=== PATIENT | female | born 1990 | race Caucasian/White ===

== ENCOUNTER 2017-05-29 05:18 | Emergency (ER) | payer OTHER, SELFPAY ==
[2017-05-29 05:24] VITALS: BP 159/103; PULSE 123; RESP 20; TEMP 36.9; O2SAT 96; BMI 47.0
--- NOTE | 2017-05-29 05:53 | HMH.EDALLER ---
ED Disposition Clinical Impression: Angioedema Qualifiers: Encounter type: initial encounter Qualified Code(s): T78.3XXA - Angioneurotic edema, initial encounter Disposition: Home, Self-Care Condition on Discharge: Good Instructions: DI for Angioedema Additional Instructions: use meds and see pcp for follow up Prescriptions: predniSONE [Prednisone 20mg Tab] 20 mg PO DAILY #10 tab - Critical Care Critical Care Time: No Attestation: On 05/29/17, the high probability of a clinically significant, sudden or life threatening deterioration of the following system(s) required my full and direct attention, intervention and personal management. The time I documented below is in addition to time spent performing reported procedures but includes the following listed in this critical care notation. Medical Decision Making - Medical Records Medical records reviewed: Yes: I reviewed the patient's medical records. Vital Signs: 05/29/17 05:24 Temperature 98.4 F Temperature Source Oral Pulse Rate [Left Brachial] 123 H Respiratory Rate 20 Blood Pressure [Right Arm] 159/103 Blood Pressure Mean [Right Arm] 121 Blood Pressure Source [Right Arm] Automatic Cuff Blood Pressure Position [Right Arm] Sitting 02 Sat by Pulse Oximetry 96 Oxygen Delivery Method Room Air - Lab Data Lab results reviewed: Yes: I reviewed the patient's lab results. Orders (Tests/Meds): ED MEDICATIONS Discontinued Medications Generic Name Dose Route Start Last Admin Trade Name Alexisq PRN Reason Stop Dose Admin Diphenhydramine HCl 25 mg 05/29/17 06:19 05/29/17 06:28 Benadryl 50mg/1ml Vial IV 05/29/17 06:20 25 mg ONCE ONE Administration Famotidine 20 mg 05/29/17 06:20 05/29/17 06:28 Pepcid 20mg/2ml Vial IV 05/29/17 06:21 20 mg ONCE ONE Administration Methylprednisolone Sodium Succinate 125 mg 05/29/17 06:19 05/29/17 06:28 Solu-Medrol 125mg/2ml Vial IV 05/29/17 06:20 125 mg ONCE ONE Administration - Gokul Inquiry Pt receiving controlled substance: No Allergic React/Insect Bite HPI - General Chief complaint: Allergic Reaction Stated complaint: Swelling all over,sore throat,aches Time Seen by Provider: 05/29/17 05:53 Mode of Arrival - ED Triage: Family Vehicle Source of Information: Patient, Relative, Medical Record Limitations: No Limitations - History of Present Illness HPI narrative: pt with allergic reaction with hx of same MD complaint: allergic reaction, hives Onset (ago): hour(s) Exposure: unknown Symptoms: rash, difficulty swallowing Treatment prior to arrival: benadryl Allergies/Adverse Reactions: Allergies Allergy/AdvReac Type Severity Reaction Status Date / Time No Known Allergies Allergy Verified 05/29/17 05:34 Previous Allergic Reaction History: angioedema Severity: similar to previous episodes - Related Data Previous Rx's Medication Instructions Recorded predniSONE [Prednisone 20mg 20 mg PO DAILY #10 tab 05/29/17 Tab] [facility] [place] History I have reviewed the patient's past medical history: Yes Medical History: Denies:: Cancer, Diabetes Mellitus Type 1, Diabetes Mellitus Type 2, MRSA Amputation: No - *Social History Educational Level: Completed College Smoking Status: Never smoker Alcohol Intake: never - Psychiatric History Expresses thoughts of harming self/others: None Suicide Plan Description: No Plan ROS Obtained: Yes All systems reviewed & no additional complaints - Constitutional Constitutional: Denies fever(s) - Eyes Eyes: Denies change in vision - ENT Ears, Nose, Mouth, and Throat: Reports throat swelling - Cardiovascular Cardiovascular: Denies chest pain at rest - Respiratory Respiratory: No cough - Gastrointestinal Gastrointestingal: Denies: vomiting - Musculoskeletal Musculoskeletal: Denies joint pain - Integumentary/Breasts Skin/Breast: Reports rash - Neurologic Neurologic: Denies frequent falls, Denies
--- NOTE | 2017-05-29 05:56 | ED_ITS ---
ED Disposition Clinical Impression: Angioedema Qualifiers: Encounter type: initial encounter Qualified Code(s): T78.3XXA - Angioneurotic edema, initial encounter Disposition: Home, Self-Care Condition on Discharge: Good Instructions: DI for Angioedema Additional Instructions: use meds and see pcp for follow up Prescriptions: predniSONE [Prednisone 20mg Tab] 20 mg PO DAILY #10 tab - Critical Care Critical Care Time: No Attestation: On 05/29/17, the high probability of a clinically significant, sudden or life threatening deterioration of the following system(s) required my full and direct attention, intervention and personal management. The time I documented below is in addition to time spent performing reported procedures but includes the following listed in this critical care notation. Medical Decision Making - Medical Records Medical records reviewed: Yes: I reviewed the patient's medical records. Vital Signs: 05/29/17 05:24 Temperature 98.4 F Temperature Source Oral Pulse Rate [Left Brachial] 123 H Respiratory Rate 20 Blood Pressure [Right Arm] 159/103 Blood Pressure Mean [Right Arm] 121 Blood Pressure Source [Right Arm] Automatic Cuff Blood Pressure Position [Right Arm] Sitting 02 Sat by Pulse Oximetry 96 Oxygen Delivery Method Room Air - Lab Data Lab results reviewed: Yes: I reviewed the patient's lab results. Orders (Tests/Meds): ED MEDICATIONS Discontinued Medications Generic Name Dose Route Start Last Admin Trade Name Alexisq PRN Reason Stop Dose Admin Diphenhydramine HCl 25 mg 05/29/17 06:19 05/29/17 06:28 Benadryl 50mg/1ml Vial IV 05/29/17 06:20 25 mg ONCE ONE Administration Famotidine 20 mg 05/29/17 06:20 05/29/17 06:28 Pepcid 20mg/2ml Vial IV 05/29/17 06:21 20 mg ONCE ONE Administration Methylprednisolone Sodium Succinate 125 mg 05/29/17 06:19 05/29/17 06:28 Solu-Medrol 125mg/2ml Vial IV 05/29/17 06:20 125 mg ONCE ONE Administration - Gokul Inquiry Pt receiving controlled substance: No Allergic React/Insect Bite HPI - General Chief complaint: Allergic Reaction Stated complaint: Swelling all over,sore throat,aches Time Seen by Provider: 05/29/17 05:53 Mode of Arrival - ED Triage: Family Vehicle Source of Information: Patient, Relative, Medical Record Limitations: No Limitations - History of Present Illness HPI narrative: pt with allergic reaction with hx of same MD complaint: allergic reaction, hives Onset (ago): hour(s) Exposure: unknown Symptoms: rash, difficulty swallowing Treatment prior to arrival: benadryl Allergies/Adverse Reactions: Allergies Allergy/AdvReac Type Severity Reaction Status Date / Time No Known Allergies Allergy Verified 05/29/17 05:34 Previous Allergic Reaction History: angioedema Severity: similar to previous episodes - Related Data Previous Rx's Medication Instructions Recorded predniSONE [Prednisone 20mg 20 mg PO DAILY #10 tab 05/29/17 Tab] [facility] History I have reviewed the patient's past medical history: Yes Medical History: Denies:: Cancer, Diabetes Mellitus Type 1, Diabetes Mellitus Type 2, MRSA Amputation: No - *Social History Educational Level: Completed
[2017-05-29 07:33] VITALS: BP 124/87; PULSE 87; RESP 16; TEMP 37; O2SAT 98
== END 2017-05-29 07:35 | disposition home or self-care (01) ==
PROVIDERS: Emergency Provider Emergency Medicine; Family Provider Internal Medicine Adolescent Medicine
DX: T78.3XXA Angioneurotic edema, initial encounter (principal)
CPT/HCPCS: 96374; 96375; 99282

== ENCOUNTER 2017-05-30 10:02 | Emergency (ER) | payer OTHER, SELFPAY ==
[2017-05-30 10:21] VITALS: BP 138/90; PULSE 86; RESP 20; TEMP 36.6; O2SAT 96; BMI 44.3
--- NOTE | 2017-05-30 10:34 | XR_ITS ---
XR chest 2V HISTORY: ITS.REASON: COUGH AND CHEST CONGESTION ORDERING PHYSICIAN: María Rushing PATIENT AGE: 27 years COMPARISON: None available FINDINGS: The cardiomediastinal silhouette and pulmonary vascularity are within normal limits. The lungs are clear without infiltrates, suspicious nodules, or pleural effusions. No acute bony abnormalities. IMPRESSION: Negative chest, no acute finding
[2017-05-30 10:44] LABS: UTC Influenza A Antigen Negative (Negative); UTC Influenza B Antigen Negative (Negative)
--- NOTE | 2017-05-30 11:01 | HMH.EDUTC ---
[facility] [place] Disposition Clinical Impression: Cough, Lung infiltrate Disposition: Home, Self-Care Condition on Discharge: Good Instructions: Sore Throat, DI for Cough -- Adult, DI for Ear Pain-Adult Additional Instructions: Take medication as prescribed Follow up with family doctor Return if needed * Monitor Temp. Tylenol and/or Ibuprofen as needed. ER if fever is no less than 101 despite alternating Tylenol and Ibuprofen * Encourage fluids, water, Gatorade, powerade, pedialyte if infant/toddler/or child * Warm salt water gargles for throat irritation *Warm fluids *Sore throat lozenges *Sleep elevated *humidifier or vaporizer Lots of rest Increase fluids, water, Gatorade, powerade Prescriptions: Albuterol Sulfate [Albuterol HFA Inhaler] 2 puffs IH Q6HP PRN #1 inh PRN Reason: Shortness Of Breath Or Wheezing Azithromycin [Z-Dexter 250mg Tab] 250 mg PO UD DOSE PK #6 tab Benzonatate [Tessalon Perle 100mg Cap] 100 mg PO TID #30 cap Guaifenesin/Dextromethorphan [Mucinex Dm ER 1,200-60 mg Tab] 1 each PO Q12H #20 tab.er.12h Forms: Work/School Release Time of Disposition: 11:33 Medical Decision Making - Medical Records Medical records reviewed: Yes: I reviewed the patient's medical records. Vital Signs: 05/30/17 10:21 Temperature 98 F Temperature Source Temporal Artery Scan Pulse Rate [Right] 86 Respiratory Rate 20 Blood Pressure [Right Arm] 138/90 Blood Pressure Mean [Right Arm] 106 Blood Pressure Source [Right Arm] Automatic Cuff Blood Pressure Position [Right Arm] Sitting 02 Sat by Pulse Oximetry 96 Oxygen Delivery Method Room Air - Lab Data Lab Results 05/30/17 10:24: Influenza Type A Ag Negative, Influenza Type B Ag Negative Orders (Tests/Meds): ED MEDICATIONS Discontinued Medications Generic Name Dose Route Start Last Admin Trade Name Freq PRN Reason Stop Dose Admin Methylprednisolone Sodium Succinate 125 mg 05/30/17 11:07 05/30/17 11:15 Solu-Medrol 125mg/2ml Vial IM 05/30/17 11:08 125 mg ONCE ONE Administration ORDERS Category Date Time Status CXR 2 view (NOT portable) [XR chest 2V] Stat Exams 05/30/17 10:34 Taken - Radiology Data #1 Image(s): Chest Image Reviewed: Yes I reviewed the patient's radiology image w/the ED provider DIscussed with DR Flores possible patchy infiltrates right lower lobe - Gokul Inquiry Pt receiving controlled substance: No Gokul was queried for this patient: No - Reevaluation(s) Time: 11:14 (Requested that Er physician or Radiology look at xray awaiting call back) [facility] [place] HPI - General Stated complaint: cough,fever,hurting all over Mode of Arrival: Ambulatory Source of Information: Patient Limitations: No Limitations Description of Symptoms (Recalled from Triage Doc. by RN): COUGH, CONGESTION, FEVER 2 DAYS HEENT Symptoms (Recalled from RN notes): Yes Resp Symptoms (Recalled from RN notes): No Skin Symptoms (Recalled from RN notes): No MS Symptoms (Recalled from RN notes): No Functional Status (Recalled from RN notes): N - History of Present Illness Provider Complaint: Patient state that she has been having cough, sinus pain and drainage, sore throat and pain in her left ear State that it has continued to get worse over the last couple of days State that she has been coughing stuff up occasionally state that today cough seems worse so she came in to get checked - Related Data Home Medications Medication Instructions Recorded Confirmed predniSONE [Prednisone 20mg 20 mg PO DAILY 05/30/17 05/30/17 Tab] Previous Rx's Medication Instructions Recorded Albuterol Sulfate [Albuterol HFA 2 puffs IH Q6HP PRN #1 inh 05/30/17 Inhaler] Azithromycin [Z-Dexter 250mg Tab] 250 mg PO UD DOSE PK #6 tab 05/30/17 Benzonatate [Tessalon Perle 100mg 100 mg PO TID #30 cap 05/30/17 Cap] Guaifenesin/Dextromethorphan 1 each PO Q12H #20 tab.er.12h 05/30/17 [Mucinex Dm ER 1,200-60 mg Tab] Allergies Allergy/Adv
--- NOTE | 2017-05-30 11:07 | ED_ITS ---
[facility] [place] Clinical Impression: Cough, Lung infiltrate Disposition: Home, Self-Care Condition on Discharge: Good Instructions: Sore Throat, DI for Cough -- Adult, DI for Ear Pain-Adult Additional Instructions: Take medication as prescribed Follow up with family doctor Return if needed * Monitor Temp. Tylenol and/or Ibuprofen as needed. ER if fever is no less than 101 despite alternating Tylenol and Ibuprofen * Encourage fluids, water, Gatorade, powerade, pedialyte if infant/toddler/or child * Warm salt water gargles for throat irritation *Warm fluids *Sore throat lozenges *Sleep elevated *humidifier or vaporizer Lots of rest Increase fluids, water, Gatorade, powerade Prescriptions: Albuterol Sulfate [Albuterol HFA Inhaler] 2 puffs IH Q6HP PRN #1 inh PRN Reason: Shortness Of Breath Or Wheezing Azithromycin [Z-Dexter 250mg Tab] 250 mg PO UD DOSE PK #6 tab Benzonatate [Tessalon Perle 100mg Cap] 100 mg PO TID #30 cap Guaifenesin/Dextromethorphan [Mucinex Dm ER 1,200-60 mg Tab] 1 each PO Q12H #20 tab.er.12h Forms: Work/School Release Time of Disposition: 11:33 Medical Decision Making - Medical Records Medical records reviewed: Yes: I reviewed the patient's medical records. Vital Signs: 05/30/17 10:21 Temperature 98 F Temperature Source Temporal Artery Scan Pulse Rate [Right] 86 Respiratory Rate 20 Blood Pressure [Right Arm] 138/90 Blood Pressure Mean [Right Arm] 106 Blood Pressure Source [Right Arm] Automatic Cuff Blood Pressure Position [Right Arm] Sitting 02 Sat by Pulse Oximetry 96 Oxygen Delivery Method Room Air - Lab Data Lab Results 05/30/17 10:24: Influenza Type A Ag Negative, Influenza Type B Ag Negative Orders (Tests/Meds): ED MEDICATIONS Discontinued Medications Generic Name Dose Route Start Last Admin Trade Name Freq PRN Reason Stop Dose Admin Methylprednisolone Sodium Succinate 125 mg 05/30/17 11:07 05/30/17 11:15 Solu-Medrol 125mg/2ml Vial IM 05/30/17 11:08 125 mg ONCE ONE Administration ORDERS Category Date Time Status CXR 2 view (NOT portable) [XR chest 2V] Stat Exams 05/30/17 10:34 Taken - Radiology Data #1 Image(s): Chest Image Reviewed: Yes I reviewed the patient's radiology image w/the ED provider DIscussed with DR Flores possible patchy infiltrates right lower lobe - Gokul Inquiry Pt receiving controlled substance: No Gokul was queried for this patient: No - Reevaluation(s) Time: 11:14 (Requested that Er physician or Radiology look at xray awaiting call back) [facility] [place] HPI - General Stated complaint: cough,fever,hurting all over Mode of Arrival: Ambulatory Source of Information: Patient Limitations: No Limitations Description of Symptoms (Recalled from Triage Doc. by RN): COUGH, CONGESTION, FEVER 2 DAYS HEENT Symptoms (Recalled from RN notes): Yes Resp Symptoms (Recalled from RN notes): No Skin Symptoms (Recalled from RN notes): No MS Symptoms (Recalled from RN notes): No Functional Status (Recalled from RN notes): N - History of Present Illness Provider Complaint: Patient state that she has been having cough, sinus pain and drainage, sore throat and pain in her left ear State that it has continued to get worse over the last couple of days State that she has been coughing stuff up occasionally state that toda
== END 2017-05-30 11:47 | disposition home or self-care (01) ==
PROVIDERS: Emergency Provider Nurse Practitioner; Family Provider Internal Medicine Adolescent Medicine
DX: R05 Cough (principal); R91.8 Other nonspecific abnormal finding of lung field
CPT/HCPCS: 71046; 87804; 96372; 99202

== ENCOUNTER → 2017-06-14 12:25 | Outpatient (CLI) | payer OTHER, SELFPAY ==
[2017-06-14 16:44] LABS: Basophils % 0.2 % (0.1-2.0); Eosinophils # 0.4 K/mm3 (0.0-0.4); Eosinophils % 3.7 % (0.1-12.0); Hematocrit 40.7 % (37.0-47.0); Hemoglobin 13.5 g/dL (12.2-16.2); Lymphocytes # 3.2 K/mm3 (0.7-4.5); Lymphocytes % 31.6 K/mm3 (10-50); Mean Corpuscular HGB Conc 33.1 g/dL (31.8-35.4); Mean Corpuscular Hemoglobin 27.8 pg (27.0-31.2); Mean Platelet Volume 7.7 fl (7.4-10.4); Monocytes # 0.8 K/mm3 (0.1-1.0); Monocytes % 7.4 % (1.7-9.3); Neutrophils # 5.8 K/mm3 (1.8-7.8); Neutrophils % 57.1 % (37.0-80.0); Platelet Count 431 K/mm3 (142-424); Red Blood Count 4.85 M/mm3 (4.20-5.40); Red Cell Distribution Width 13.2 % (11.5-17.5); White Blood Count 10.2 K/mm3 (4.8-10.8)
== END ==
PROVIDERS: PCP Internal Medicine Adolescent Medicine; Visit Provider Nurse Practitioner Family
DX: D72.829 Elevated white blood cell count, unspecified (principal)
CPT/HCPCS: 36415; 85025

== ENCOUNTER 2017-08-22 09:53 | Outpatient (CLI) | payer OTHER, SELFPAY ==
[2017-08-22 10:00] VITALS: BMI 44.3
[2017-08-22 10:30] VITALS: BP 117/38; PULSE 85; RESP 20; O2SAT 97
[2017-08-22 10:45] VITALS: BP 120/58; PULSE 79; RESP 18; O2SAT 100
[2017-08-22 11:00] VITALS: BP 125/68; PULSE 78; RESP 18; O2SAT 100
[2017-08-22 11:15] VITALS: BP 118/63; PULSE 87; RESP 18; O2SAT 100
[2017-08-22 11:30] VITALS: BP 116/64; PULSE 78; RESP 18; O2SAT 98
--- NOTE | 2017-08-22 15:21 | PC.NURSE ---
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 1330: Called patient and shes doing ok, no side effects after injections noted.
== END 2017-08-22 11:30 | disposition home or self-care (01) ==
LOC: INF 09:53
PROVIDERS: Family Provider Internal Medicine Adolescent Medicine; PCP Internal Medicine Adolescent Medicine; Visit Provider Internal Medicine Adolescent Medicine
DX: T78.3XXA Angioneurotic edema, initial encounter (principal); L50.0 Allergic urticaria
CPT/HCPCS: 96372; J2357

== ENCOUNTER 2017-09-17 13:10 | Outpatient (CLI) | payer OTHER, SELFPAY ==
[2017-09-17 13:35] VITALS: BP 134/80; PULSE 80; RESP 18
[2017-09-17 13:45] VITALS: BP 140/92; PULSE 80; RESP 18
[2017-09-17 14:00] VITALS: BP 129/76; PULSE 80; RESP 18
[2017-09-17 14:15] VITALS: BP 125/86; PULSE 81; RESP 18
[2017-09-17 14:30] VITALS: BP 125/86; PULSE 73; RESP 18
[2017-09-17 14:35] VITALS: BP 125/86; PULSE 73; RESP 18
== END 2017-09-17 14:35 | disposition home or self-care (01) ==
PROVIDERS: Family Provider Internal Medicine Adolescent Medicine; PCP Internal Medicine Adolescent Medicine; Visit Provider Internal Medicine Adolescent Medicine
DX: T78.3XXA Angioneurotic edema, initial encounter (principal); L50.0 Allergic urticaria
CPT/HCPCS: 96401; J2357

== ENCOUNTER 2017-10-15 08:25 | Outpatient (CLI) | payer OTHER, SELFPAY ==
[2017-10-15 08:45] VITALS: BP 144/86; PULSE 84; RESP 20; TEMP 36.7; O2SAT 94
[2017-10-15 10:00] VITALS: BP 139/81; PULSE 86; RESP 20; TEMP 36.7; O2SAT 96
== END 2017-10-15 10:00 | disposition home or self-care (01) ==
LOC: INF 08:30
PROVIDERS: Family Provider Internal Medicine Adolescent Medicine; PCP Internal Medicine Adolescent Medicine; Visit Provider Internal Medicine Adolescent Medicine
DX: T78.3XXA Angioneurotic edema, initial encounter (principal); L50.0 Allergic urticaria
CPT/HCPCS: 96372; J2357

== ENCOUNTER 2017-11-12 13:50 | Outpatient (CLI) | payer OTHER, SELFPAY ==
[2017-11-12 14:05] VITALS: BP 119/77; PULSE 81; RESP 18; TEMP 36.5; O2SAT 98
== END 2017-11-12 14:27 | disposition home or self-care (01) ==
LOC: INF 14:01
PROVIDERS: Family Provider Internal Medicine Adolescent Medicine; PCP Internal Medicine Adolescent Medicine; Visit Provider Internal Medicine Adolescent Medicine
DX: T78.3XXA Angioneurotic edema, initial encounter (principal); L50.0 Allergic urticaria
CPT/HCPCS: 96372; J2357

== ENCOUNTER 2017-12-10 10:51 | Outpatient (CLI) | payer OTHER, SELFPAY ==
[2017-12-10 11:20] VITALS: BP 130/75; PULSE 89; RESP 20; TEMP 36.6; O2SAT 97
== END 2017-12-10 11:45 | disposition home or self-care (01) ==
LOC: INF 10:51
PROVIDERS: Family Provider Internal Medicine Adolescent Medicine; PCP Internal Medicine Adolescent Medicine; Visit Provider Internal Medicine Adolescent Medicine
DX: T78.3XXA Angioneurotic edema, initial encounter (principal); L50.0 Allergic urticaria
CPT/HCPCS: 96372; J2357

== ENCOUNTER 2018-01-07 13:30 | Outpatient (CLI) | payer OTHER, SELFPAY ==
[2018-01-07 13:35] VITALS: BP 129/84; PULSE 66; RESP 20; TEMP 36.9; O2SAT 96
== END 2018-01-07 13:50 | disposition home or self-care (01) ==
LOC: INF 13:36
PROVIDERS: Family Provider Internal Medicine Adolescent Medicine; PCP Internal Medicine Adolescent Medicine; Visit Provider Internal Medicine Adolescent Medicine
DX: T78.3XXA Angioneurotic edema, initial encounter (principal); L50.0 Allergic urticaria
CPT/HCPCS: 96372

== ENCOUNTER 2018-02-04 12:22 | Outpatient (CLI) | payer OTHER, SELFPAY ==
[2018-02-04 12:25] VITALS: BP 122/70; PULSE 68; RESP 20; TEMP 36.7; O2SAT 96
== END 2018-02-04 12:55 | disposition home or self-care (01) ==
LOC: INF 12:22
PROVIDERS: Visit Provider Internal Medicine Adolescent Medicine
DX: T78.3XXA Angioneurotic edema, initial encounter (principal); L50.0 Allergic urticaria
CPT/HCPCS: 96372; J2357

== ENCOUNTER 2018-03-04 13:05 | Outpatient (CLI) | payer OTHER, SELFPAY ==
[2018-03-04 13:30] VITALS: BP 128/74; PULSE 68; RESP 20; TEMP 36.9; O2SAT 96
== END 2018-03-04 13:50 | disposition home or self-care (01) ==
LOC: INF 13:14
PROVIDERS: Visit Provider Internal Medicine Adolescent Medicine
DX: T78.3XXA Angioneurotic edema, initial encounter (principal); L50.0 Allergic urticaria
CPT/HCPCS: 96372; J2357

== ENCOUNTER 2018-04-01 13:22 | Outpatient (CLI) | payer OTHER, SELFPAY ==
[2018-04-01 13:36] VITALS: BP 129/87; PULSE 82; RESP 18; TEMP 36.6; O2SAT 98
== END 2018-04-01 14:00 | disposition home or self-care (01) ==
LOC: INF 13:22
PROVIDERS: Visit Provider Internal Medicine Adolescent Medicine
DX: T78.3XXA Angioneurotic edema, initial encounter (principal); L50.0 Allergic urticaria
CPT/HCPCS: 96372; J2357

== ENCOUNTER 2018-05-01 11:33 | Outpatient (CLI) | payer OTHER, SELFPAY ==
[2018-05-01 12:00] VITALS: BP 113/80; PULSE 70; RESP 18; TEMP 36.6; O2SAT 99
== END 2018-05-01 12:10 | disposition home or self-care (01) ==
LOC: INF 11:33
PROVIDERS: Visit Provider Internal Medicine Adolescent Medicine
DX: T78.3XXA Angioneurotic edema, initial encounter (principal); L50.0 Allergic urticaria
CPT/HCPCS: 96372; J2357

== ENCOUNTER 2018-05-28 16:10 | Outpatient (CLI) | payer OTHER, SELFPAY ==
[2018-05-28 16:00] VITALS: BP 148/70; PULSE 60; RESP 20; TEMP 36.9; O2SAT 95
== END 2018-05-28 16:30 | disposition home or self-care (01) ==
LOC: INF 16:20
PROVIDERS: Visit Provider Allergy & Immunology
DX: T78.3XXA Angioneurotic edema, initial encounter (principal); L50.0 Allergic urticaria
CPT/HCPCS: 96372; J2357

== ENCOUNTER 2018-06-25 11:55 | Outpatient (CLI) | payer OTHER, SELFPAY ==
[2018-06-25 12:00] VITALS: BP 149/98; PULSE 92; RESP 18; TEMP 36.6; O2SAT 99
== END 2018-06-25 12:11 | disposition home or self-care (01) ==
LOC: INF 11:55
PROVIDERS: Visit Provider Internal Medicine Adolescent Medicine
DX: L50.0 Allergic urticaria (principal); T78.3XXA Angioneurotic edema, initial encounter
CPT/HCPCS: 96372; J2357

== ENCOUNTER 2018-07-22 15:29 | Outpatient (CLI) | payer OTHER, SELFPAY ==
[2018-07-22 15:31] VITALS: BP 127/81; PULSE 81; RESP 20; TEMP 36.8; O2SAT 97
== END 2018-07-22 15:37 | disposition home or self-care (01) ==
LOC: INF 15:29
PROVIDERS: Visit Provider Internal Medicine Adolescent Medicine
DX: L50.0 Allergic urticaria (principal); T78.3XXA Angioneurotic edema, initial encounter
CPT/HCPCS: 96372; J2357

== ENCOUNTER 2018-08-22 09:01 | Outpatient (CLI) | payer OTHER, SELFPAY ==
[2018-08-22 09:00] VITALS: BP 115/74; PULSE 84; RESP 18; TEMP 36.4; O2SAT 97
[2018-08-22 09:55] VITALS: BP 115/74; PULSE 84; RESP 18; TEMP 36.4; O2SAT 97
== END 2018-08-22 09:55 | disposition home or self-care (01) ==
LOC: INF 09:01
PROVIDERS: Visit Provider Internal Medicine Adolescent Medicine
DX: L50.0 Allergic urticaria (principal); T78.3XXA Angioneurotic edema, initial encounter
CPT/HCPCS: 96372; J2357

== ENCOUNTER 2018-09-19 15:07 | Outpatient (CLI) | payer OTHER, SELFPAY ==
[2018-09-19 12:26] VITALS: BP 140/75; PULSE 67; RESP 18; TEMP 36.6; O2SAT 98
== END 2018-09-19 15:14 | disposition home or self-care (01) ==
LOC: INF 15:07
PROVIDERS: Visit Provider Internal Medicine Adolescent Medicine
DX: L50.0 Allergic urticaria (principal); T78.3XXA Angioneurotic edema, initial encounter
CPT/HCPCS: 96372; J2357

== ENCOUNTER 2018-10-15 10:40 | Outpatient (CLI) | payer OTHER, SELFPAY ==
[2018-10-15 10:46] VITALS: BP 126/85; PULSE 70; RESP 18; O2SAT 97
== END 2018-10-15 10:55 | disposition home or self-care (01) ==
LOC: INF 10:44
PROVIDERS: Visit Provider Internal Medicine Adolescent Medicine
DX: L50.0 Allergic urticaria (principal); T78.3XXA Angioneurotic edema, initial encounter
CPT/HCPCS: 96372; J2357

== ENCOUNTER 2018-11-14 14:49 | Outpatient (CLI) | payer OTHER, SELFPAY ==
[2018-11-14 15:05] VITALS: BP 126/68; PULSE 80; RESP 18; O2SAT 98
== END 2018-11-14 15:15 | disposition home or self-care (01) ==
LOC: INF 14:50
PROVIDERS: Visit Provider Internal Medicine Adolescent Medicine
DX: L50.0 Allergic urticaria (principal); T78.3XXA Angioneurotic edema, initial encounter
CPT/HCPCS: 96372; J2357

== ENCOUNTER 2018-12-13 13:23 | Outpatient (CLI) | payer OTHER, SELFPAY ==
[2018-12-13 13:40] VITALS: BP 113/70; PULSE 82; RESP 18; O2SAT 96
== END 2018-12-13 13:45 | disposition home or self-care (01) ==
LOC: INF 13:23
PROVIDERS: PCP Internal Medicine Adolescent Medicine; Visit Provider Allergy & Immunology
DX: T78.3XXA Angioneurotic edema, initial encounter (principal)
CPT/HCPCS: 96372; J2357

== ENCOUNTER 2019-01-13 11:40 | Outpatient (CLI) | payer OTHER, SELFPAY ==
[2019-01-13 12:10] VITALS: BP 111/73; PULSE 68; RESP 18; O2SAT 96
== END 2019-01-13 12:13 | disposition home or self-care (01) ==
LOC: INF 13:49
PROVIDERS: Visit Provider Allergy & Immunology
DX: T78.3XXA Angioneurotic edema, initial encounter (principal)
CPT/HCPCS: 96372; J2357

== ENCOUNTER 2019-02-11 13:37 | Outpatient (CLI) | payer OTHER, SELFPAY ==
[2019-02-11 13:55] VITALS: BP 119/74; PULSE 78; RESP 18
== END 2019-02-11 14:00 | disposition home or self-care (01) ==
LOC: INF 13:37
PROVIDERS: Visit Provider Internal Medicine Adolescent Medicine
DX: T78.3XXA Angioneurotic edema, initial encounter (principal)
CPT/HCPCS: 96372; J2357

== ENCOUNTER 2019-03-11 12:51 | Outpatient (CLI) | payer OTHER, SELFPAY ==
[2019-03-11 12:51] VITALS: BP 123/79; PULSE 78; RESP 20; TEMP 36.9; O2SAT 98
== END 2019-03-11 13:45 | disposition home or self-care (01) ==
LOC: INF 12:51
PROVIDERS: Visit Provider Internal Medicine Adolescent Medicine
DX: L50.0 Allergic urticaria (principal); T78.3XXA Angioneurotic edema, initial encounter
CPT/HCPCS: 96372; J2357

== ENCOUNTER 2019-04-08 12:18 | Outpatient (CLI) | payer OTHER, SELFPAY ==
[2019-04-08 12:46] VITALS: BP 137/86; PULSE 82; RESP 18; O2SAT 96
== END 2019-04-08 12:46 | disposition home or self-care (01) ==
LOC: INF 12:18
PROVIDERS: Visit Provider Internal Medicine Adolescent Medicine
DX: T78.3XXA Angioneurotic edema, initial encounter (principal)
CPT/HCPCS: 96372; J2357

== ENCOUNTER 2019-05-12 10:41 | Outpatient (CLI) | payer OTHER, SELFPAY ==
[2019-05-12 10:40] VITALS: BP 123/74; PULSE 82; RESP 18; TEMP 36.6; O2SAT 97
== END 2019-05-12 11:25 | disposition home or self-care (01) ==
LOC: INF 10:41
PROVIDERS: PCP Internal Medicine Adolescent Medicine; Visit Provider Internal Medicine Adolescent Medicine
DX: T78.3XXA Angioneurotic edema, initial encounter (principal)
CPT/HCPCS: 96372; J2357

== ENCOUNTER 2019-06-09 15:43 | Outpatient (CLI) | payer OTHER, SELFPAY ==
[2019-06-09 15:59] VITALS: BP 111/75; PULSE 70; RESP 18; TEMP 36.8; O2SAT 98
== END 2019-06-09 16:15 | disposition home or self-care (01) ==
LOC: INF 15:43
PROVIDERS: Visit Provider Internal Medicine Adolescent Medicine
DX: T78.3XXA Angioneurotic edema, initial encounter (principal)
CPT/HCPCS: 96372; J2357

== ENCOUNTER 2019-07-07 14:44 | Outpatient (CLI) | payer OTHER, SELFPAY ==
[2019-07-07 14:59] VITALS: BP 126/77; PULSE 67; RESP 18; O2SAT 98
== END 2019-07-07 14:59 | disposition home or self-care (01) ==
LOC: INF 14:44
PROVIDERS: Visit Provider Internal Medicine Adolescent Medicine
DX: T78.3XXA Angioneurotic edema, initial encounter (principal)
CPT/HCPCS: 96372; J2357

== ENCOUNTER 2019-08-01 13:11 | Outpatient (CLI) | payer OTHER, SELFPAY ==
[2019-08-01 13:20] VITALS: BP 133/75; PULSE 76; RESP 18; O2SAT 97
== END 2019-08-01 13:20 | disposition home or self-care (01) ==
LOC: INF 13:11
PROVIDERS: PCP Internal Medicine Adolescent Medicine; Visit Provider Internal Medicine Adolescent Medicine
DX: T78.3XXA Angioneurotic edema, initial encounter (principal)
CPT/HCPCS: 96372; J2357

== ENCOUNTER 2019-08-28 09:04 | Outpatient (CLI) | payer OTHER, SELFPAY ==
[2019-08-28 09:16] VITALS: BP 150/96; PULSE 68; RESP 20; TEMP 36.9; O2SAT 98
--- NOTE | 2019-08-28 09:52 | PC.NURSE ---
given in both arms
== END 2019-08-28 09:30 | disposition home or self-care (01) ==
LOC: INF 09:04
PROVIDERS: Visit Provider Internal Medicine Adolescent Medicine
DX: T78.3XXA Angioneurotic edema, initial encounter (principal)
CPT/HCPCS: 96372; J2357

== ENCOUNTER → 2019-09-25 13:49 | Outpatient (CLI) | payer OTHER, SELFPAY ==
[2019-09-25 14:20] VITALS: BP 112/74; PULSE 68; RESP 20; TEMP 36.9; O2SAT 95
[2019-09-25 14:25] VITALS: BP 112/74; PULSE 68; RESP 20; TEMP 36.9
== END ==
PROVIDERS: Visit Provider Internal Medicine Adolescent Medicine
DX: T78.3XXA Angioneurotic edema, initial encounter (principal)
CPT/HCPCS: 96372; J2357

== ENCOUNTER → 2019-10-03 14:03 | Outpatient (CLI) | payer OTHER, SELFPAY ==
[2019-10-03 16:53] LABS: Coronavirus 19 IgG Antibody Negative (Negative); Coronavirus 19 IgM Antibody Negative (Negative)
== END ==
PROVIDERS: Visit Provider Internal Medicine Adolescent Medicine
DX: Z03.818 Encounter for observation for suspected exposure to other biological agents ruled out (principal)
CPT/HCPCS: 36415; 86328

== ENCOUNTER 2019-10-23 12:35 | Outpatient (CLI) | payer OTHER, SELFPAY ==
[2019-10-23 12:55] VITALS: BP 125/75; PULSE 68; RESP 18; TEMP 36.7; O2SAT 100
== END 2019-10-23 13:06 | disposition home or self-care (01) ==
LOC: INF 12:35
PROVIDERS: Visit Provider Internal Medicine Adolescent Medicine
DX: T78.3XXA Angioneurotic edema, initial encounter (principal)
CPT/HCPCS: 96372; J2357

== ENCOUNTER 2019-11-19 10:55 | Outpatient (CLI) | payer OTHER, SELFPAY ==
[2019-11-19 11:20] VITALS: BP 128/78; PULSE 90; RESP 18; O2SAT 95
== END 2019-11-19 11:20 | disposition home or self-care (01) ==
LOC: INF 10:58
PROVIDERS: PCP Internal Medicine Adolescent Medicine; Visit Provider Internal Medicine Adolescent Medicine
DX: T78.3XXA Angioneurotic edema, initial encounter (principal)
CPT/HCPCS: 96372; J2357

== ENCOUNTER 2019-12-15 15:06 | Outpatient (CLI) | payer OTHER, SELFPAY ==
[2019-12-15 15:30] VITALS: BP 112/71; PULSE 79; RESP 18; TEMP 36.4; O2SAT 99
== END 2019-12-15 15:45 | disposition home or self-care (01) ==
LOC: INF 15:06
PROVIDERS: Visit Provider Internal Medicine Adolescent Medicine
DX: T78.3XXA Angioneurotic edema, initial encounter (principal)
CPT/HCPCS: 96372; J2357

== ENCOUNTER 2020-01-07 18:52 | Emergency (ER) | payer OTHER, SELFPAY ==
[2020-01-07 19:01] VITALS: BP 119/88; PULSE 100; RESP 19; TEMP 37.2; O2SAT 99; BMI 42.5
--- NOTE | 2020-01-07 19:08 | HMH.EDUTC ---
[facility] [place] Clinical Impression: Sinusitis Qualifiers: Sinusitis location: unspecified location Chronicity: unspecified Qualified Code(s): J32.9 - Chronic sinusitis, unspecified Disposition: Home, Self-Care Condition on Discharge: Good Instructions: Sinusitis, Sinus Headache, DI for Sinusitis, Amoxicillin and Clavulanic Acid, Prednisone Additional Instructions: *Monitor Temp, Over the counter Motrin or Tylenol as directed/as needed Tylenol every 4 hours and Motrin every 6 hours (as long as your family doctor has told you that you can take it) for fever or pain. and straight to ER if unable to lower temp less than 101.0 after medication given *Warm salt water gargles may help to soothe the throat *Throat Lozenges *Warm fluids like tea with honey may help to soothe the throat *Sleep elevated *Humidifier/Vaporizer *Flonase 2 sprays in each nostril daily but be aware that it may take 2-3 days before you notice improvement *Start antibiotic. Sinus infections may take 2-3 days to notice much improvement so be sure to use conservative measures as discussed for symptoms Ok to continue Sudafed Lots of Fluids Augmentin can cause GI effects. Probiotics may help to prevent these symptoms Your throat swab was sent for culture. Those results are typically sent to your primary care. Be sure to follow up in 2-3 days with your family doctor/primary care physician if no improvement so they can review those result and treat if necessary. If you don?t have a primary care doctor, I recommend you get one but in the mean time, you will have to return to a walk in clinic Follow up IMMEDIATELY for new or worsening symptoms or no Noticeable improvement over the next 48-72 hours. 911 for difficulty breathing or swallowing Prescriptions: Amoxicillin/Potassium Clav [Augmentin 875-125 Tablet] 1 tab PO Q12H 10 Days #20 tab Transmission Status: Pending to [facility] Fluticasone Propionate [Flonase 50mcg nasal spray 16gm] 1 - 2 spr NS DAILY #1 bottle Transmission Status: Pending to [facility] methylPREDNISolone [Medrol 4mg tab] 4 mg PO DIRECTED #21 tab Transmission Status: Pending to [facility] Referrals: Zev Hilliard MD [Primary Care Provider] - As needed Time of Disposition: 19:20 Medical Decision Making - Gokul Inquiry Pt receiving controlled substance: No Gokul was queried for this patient: No Vital Signs: 01/07/20 19:01 Temperature 99.0 F Temperature Source Oral Pulse Rate [Radial] 100 H Respiratory Rate 19 Blood Pressure [Right Arm] 119/88 Blood Pressure Mean [Right Arm] 98 Blood Pressure Source [Right Arm] Automatic Cuff Blood Pressure Position [Right Arm] Sitting 02 Sat by Pulse Oximetry 99 Oxygen Delivery Method Room Air - Lab Data Lab results reviewed: Yes: I reviewed the patient's lab results. [facility] [place] - General Stated complaint: Congestion, body aches Time Seen by Provider: 01/07/20 19:08 Mode of Arrival: Ambulatory Source of Information: Patient Limitations: No Limitations Description of Symptoms (Recalled from Triage Doc. by RN): sore throat, runny nose, sinus pressure, body aches, ear pain HEENT Symptoms (Recalled from RN notes): Yes Resp Symptoms (Recalled from RN notes): No Skin Symptoms (Recalled from RN notes): No MS Symptoms (Recalled from RN notes): No Functional Status (Recalled from RN notes): wnl - History of Present Illness Provider Complaint: Patient states that she has been having sinus pain and pressure, sore throat, and pain in both ears States that she feels like she is swollen and puffy under her eyes like she has a bad sinus infection. States that she has been taken benadryl today but hasnt helped much - Related Data Home Medications Medication Instructions Recorded Confirmed Cetirizine HCl [Zyrtec] 10 mg PO TID 08/22/17 12/15/19 raNITIdine HCl [Zantac] 300 mg PO BID 08/22/17 12/15/19 diphenhydrAMINE HCL [Benadryl] 25 mg PO HS 06/25/18
[2020-01-07 19:24] LABS: UTC Strep Screen (Rapid) Negative (Negative)
[2020-01-07 19:38] VITALS: BP 119/88; PULSE 100; RESP 19; TEMP 37.2; O2SAT 99
== END 2020-01-07 19:40 | disposition home or self-care (01) ==
PROVIDERS: Emergency Provider Nurse Practitioner; PCP Internal Medicine Adolescent Medicine
DX: J32.9 Chronic sinusitis, unspecified (principal)
CPT/HCPCS: 87880; 96372; 99202

== ENCOUNTER 2020-01-12 13:04 | Outpatient (CLI) | payer OTHER, SELFPAY ==
[2020-01-12 13:10] VITALS: BP 112/67; PULSE 80; RESP 18; TEMP 36.7; O2SAT 98
== END 2020-01-12 13:30 | disposition home or self-care (01) ==
LOC: INF 13:04
PROVIDERS: Visit Provider Internal Medicine Adolescent Medicine
DX: T78.3XXA Angioneurotic edema, initial encounter (principal)
CPT/HCPCS: 96372; J2357

== ENCOUNTER 2020-02-09 14:38 | Outpatient (CLI) | payer OTHER, SELFPAY ==
[2020-02-09 14:54] VITALS: BP 137/74; PULSE 80; RESP 18; TEMP 36.4; O2SAT 97
== END 2020-02-09 15:08 | disposition home or self-care (01) ==
LOC: INF 14:38
PROVIDERS: Visit Provider Internal Medicine Adolescent Medicine
DX: T78.3XXA Angioneurotic edema, initial encounter (principal)
CPT/HCPCS: 96372; J2357

== ENCOUNTER 2020-03-08 13:01 | Outpatient (CLI) | payer OTHER, SELFPAY ==
[2020-03-08 13:20] VITALS: BP 111/53; PULSE 78; RESP 18; TEMP 36.4; O2SAT 98
== END 2020-03-08 13:40 | disposition home or self-care (01) ==
LOC: INF 13:01
PROVIDERS: Visit Provider Internal Medicine Adolescent Medicine
DX: T78.3XXA Angioneurotic edema, initial encounter (principal)
CPT/HCPCS: 96372; J2357

== ENCOUNTER 2020-04-05 14:33 | Outpatient (CLI) | payer OTHER, SELFPAY ==
[2020-04-05 14:59] VITALS: BP 132/73; PULSE 71; RESP 18; TEMP 36.2; O2SAT 98
== END 2020-04-05 15:18 | disposition home or self-care (01) ==
LOC: INF 14:33
PROVIDERS: Visit Provider Internal Medicine Adolescent Medicine
DX: T78.3XXA Angioneurotic edema, initial encounter (principal)
CPT/HCPCS: 96372; J2357

== ENCOUNTER 2020-05-03 14:30 | Outpatient (CLI) | payer OTHER, SELFPAY ==
[2020-05-03 14:49] VITALS: BP 120/69; PULSE 69; RESP 18; TEMP 36.4; O2SAT 100
== END 2020-05-03 14:58 | disposition home or self-care (01) ==
LOC: INF 14:30
PROVIDERS: Visit Provider Internal Medicine Adolescent Medicine
DX: T78.3XXA Angioneurotic edema, initial encounter (principal)
CPT/HCPCS: 96372; J2357

== ENCOUNTER 2020-05-31 13:22 | Outpatient (CLI) | payer OTHER, SELFPAY ==
[2020-05-31 13:42] VITALS: BP 135/76; PULSE 77; RESP 18; TEMP 37; O2SAT 99
== END 2020-05-31 13:42 | disposition home or self-care (01) ==
LOC: INF 13:23
PROVIDERS: Visit Provider Internal Medicine Adolescent Medicine
DX: T78.3XXA Angioneurotic edema, initial encounter (principal)
CPT/HCPCS: 96372; J2357

== ENCOUNTER 2020-06-28 13:50 | Outpatient (CLI) | payer OTHER, SELFPAY ==
[2020-06-28 14:00] VITALS: BP 112/72; PULSE 74; RESP 18; TEMP 36.6; O2SAT 98
== END 2020-06-28 14:17 | disposition home or self-care (01) ==
LOC: INF 13:50
PROVIDERS: Visit Provider Internal Medicine Adolescent Medicine
DX: T78.3XXA Angioneurotic edema, initial encounter (principal)
CPT/HCPCS: 96372; J2357

== ENCOUNTER 2020-07-26 12:53 | Outpatient (CLI) | payer OTHER, SELFPAY ==
[2020-07-26 13:10] VITALS: BP 135/80; PULSE 67; RESP 18; TEMP 36.4; O2SAT 99
== END 2020-07-26 13:30 | disposition home or self-care (01) ==
LOC: INF 12:53
PROVIDERS: Visit Provider Internal Medicine Adolescent Medicine
DX: T78.3XXA Angioneurotic edema, initial encounter (principal)
CPT/HCPCS: 96372; J2357

== ENCOUNTER 2020-08-23 13:55 | Outpatient (CLI) | payer OTHER, SELFPAY ==
[2020-08-23 14:15] VITALS: BP 124/76; PULSE 73; RESP 18; TEMP 36.3; O2SAT 98
== END 2020-08-23 14:25 | disposition home or self-care (01) ==
LOC: INF 14:05
PROVIDERS: Visit Provider Internal Medicine Adolescent Medicine
DX: T78.3XXA Angioneurotic edema, initial encounter (principal)
CPT/HCPCS: 96372; J2357

== ENCOUNTER 2020-09-20 15:15 | Outpatient (CLI) | payer OTHER, SELFPAY ==
[2020-09-20 15:35] VITALS: BP 132/91; PULSE 72; RESP 18; O2SAT 95
== END 2020-09-20 15:35 | disposition home or self-care (01) ==
LOC: INF 15:17
PROVIDERS: Visit Provider Internal Medicine Adolescent Medicine
DX: T78.3XXA Angioneurotic edema, initial encounter (principal)
CPT/HCPCS: 96372; J2357

== ENCOUNTER 2020-10-18 15:01 | Outpatient (CLI) | payer OTHER, SELFPAY ==
[2020-10-18 15:30] VITALS: BP 124/75; PULSE 73; RESP 17; TEMP 36.7; O2SAT 97
== END 2020-10-18 15:32 | disposition home or self-care (01) ==
LOC: INF 16:03
PROVIDERS: Visit Provider Internal Medicine Adolescent Medicine
DX: T78.3XXA Angioneurotic edema, initial encounter (principal)
CPT/HCPCS: 96372; J2357

== ENCOUNTER 2020-11-15 12:12 | Outpatient (CLI) | payer OTHER, SELFPAY ==
[2020-11-15 12:38] VITALS: BP 114/70; PULSE 73; RESP 18; TEMP 36.8; O2SAT 99
== END 2020-11-15 12:45 | disposition home or self-care (01) ==
LOC: INF 12:12
PROVIDERS: Visit Provider Internal Medicine Adolescent Medicine
DX: T78.3XXA Angioneurotic edema, initial encounter (principal)
CPT/HCPCS: 96372; J2357

== ENCOUNTER → 2020-11-15 14:02 | Outpatient (CLI) | payer OTHER, SELFPAY ==
--- NOTE | 2020-11-15 14:06 | CT_ITS ---
PROCEDURE: CT HEAD/BRAIN WO/W CON CLINICAL INDICATION: SUBCUTANEOUS MASS OF HEAD COMPARISON: No exams were available for comparison TECHNIQUE: IV Contrast: 100ML Isovue 370 CT head with axial performed with and without contrast. Dose modulation, automated exposure control, and/or iterative reconstruction were used for dose reduction. FINDINGS: In the subcutaneous soft tissues at the occipital region demonstrates minor skin thickening with the soft tissue density which may be related to prior surgery. No evidence of focal mass lesions are noted. No other suspicious findings. There is no space-occupying mass or abnormal enhancement.There is no evidence of hemorrhage. Ventricles: The ventricles are within normal limits for size, configuration, and symmetry. The briones-white differentiation is well preserved throughout, with no evidence of acute infarct. Volume: Brain parenchymal volume is appropriate for age. Osseous Osseous structures are unremarkable. Sinuses: The paranasal sinuses are clear Mastoids: Mastoid air cells are clear. IMPRESSION: No acute intracranial process. Postsurgical changes in the occipital scalp. No focal masses are noted. Dictated by: Lady Mcgovern 11/15/2020 15:43 Lady Mcgovern in OV 11/15/2020 15:43
== END ==
PROVIDERS: PCP Internal Medicine Adolescent Medicine; Visit Provider Nurse Practitioner Family
DX: R22.0 Localized swelling, mass and lump, head (principal)
CPT/HCPCS: 70470; Q9967

== ENCOUNTER 2020-12-14 15:03 | Outpatient (CLI) | payer OTHER, SELFPAY ==
[2020-12-14 15:32] VITALS: BP 130/77; PULSE 79; RESP 18; TEMP 36.8; O2SAT 99
== END 2020-12-14 15:51 | disposition home or self-care (01) ==
LOC: INF 15:03
PROVIDERS: Visit Provider Internal Medicine Adolescent Medicine
DX: T78.3XXA Angioneurotic edema, initial encounter (principal)
CPT/HCPCS: 96372; J2357

== ENCOUNTER → 2021-01-12 09:50 | Outpatient (CLI) | payer OTHER, SELFPAY ==
[2021-01-12 12:10] VITALS: BP 124/80; PULSE 56; RESP 17; TEMP 36.8; O2SAT 98
== END ==
PROVIDERS: PCP Internal Medicine Adolescent Medicine; Visit Provider Internal Medicine Adolescent Medicine
DX: R05 Cough (principal); T78.3XXA Angioneurotic edema, initial encounter
CPT/HCPCS: 96372; J2357

== ENCOUNTER 2021-02-08 10:55 | Outpatient (CLI) | payer OTHER, SELFPAY ==
[2021-02-08 12:55] VITALS: BP 123/74; PULSE 74; RESP 18; O2SAT 99
== END 2021-02-08 12:55 | disposition home or self-care (01) ==
LOC: INF 10:55
PROVIDERS: PCP Internal Medicine Adolescent Medicine; Visit Provider Internal Medicine Adolescent Medicine
DX: T78.3XXA Angioneurotic edema, initial encounter (principal)
CPT/HCPCS: 96372; J2357

== ENCOUNTER → 2021-02-23 17:47 | Outpatient (CLI) | payer OTHER, SELFPAY ==
[2021-02-23 18:00] LABS: Coronavirus 19, PCR Not Detected (NotDetected); Influenza A, PCR Not Detected (NotDetected); Influenza B, PCR Not Detected (NotDetected)
== END ==
PROVIDERS: PCP Radiology Diagnostic Radiology; Visit Provider Nurse Practitioner
DX: Z20.822 Contact with and (suspected) exposure to COVID-19 (principal)
CPT/HCPCS: C9803; U0003; U0005

== ENCOUNTER 2021-03-08 11:25 | Outpatient (CLI) | payer OTHER, SELFPAY ==
[2021-03-08 14:10] VITALS: BP 126/72; PULSE 87; RESP 18; TEMP 36.7; O2SAT 98
== END 2021-03-08 14:05 | disposition home or self-care (01) ==
LOC: INF 11:26
PROVIDERS: PCP Internal Medicine Adolescent Medicine; Visit Provider Internal Medicine Adolescent Medicine
DX: T78.3XXA Angioneurotic edema, initial encounter (principal)
CPT/HCPCS: 96372; J2357

== ENCOUNTER 2021-04-05 09:56 | Outpatient (CLI) | payer OTHER, SELFPAY ==
[2021-04-05 15:38] VITALS: BP 125/89; PULSE 93; RESP 18; TEMP 36.4; O2SAT 98
== END 2021-04-05 15:47 | disposition home or self-care (01) ==
LOC: INF 09:58
PROVIDERS: PCP Internal Medicine Adolescent Medicine; Visit Provider Internal Medicine Adolescent Medicine
DX: T78.3XXA Angioneurotic edema, initial encounter (principal)
CPT/HCPCS: 96372; J2357

== ENCOUNTER 2021-05-01 18:36 | Emergency (ER) | payer OTHER, SELFPAY ==
[2021-05-01 19:37] VITALS: BP 130/95; PULSE 108; RESP 20; TEMP 36.9; O2SAT 97; BMI 42.3
[2021-05-01 19:42] LABS: Coronavirus 19, PCR Not Detected (NotDetected); Influenza A, PCR Not Detected (NotDetected); Influenza B, PCR Not Detected (NotDetected)
--- NOTE | 2021-05-01 19:59 | HMH.EDUTC ---
[facility] Disposition Clinical Impression: Viral syndrome Pharyngitis Qualifiers: Pharyngitis/tonsillitis etiology: unspecified etiology Qualified Code(s): J02.9 - Acute pharyngitis, unspecified Disposition: Home, Self-Care Condition on Discharge: Good Instructions: Preventing the Spread of Coronavirus Discharge Instructions, DI for COVID-19 (Suspected or Confirmed ) Additional Instructions: Drink plenty of fluids. Take tylenol or ibuprofen for pain or fever. Take the medications as directed. Follow up with your regular doctor. GO TO THE ER FOR ANY WORSENING SYMPTOMS Quarantine until you know the results of your covid-19 test. If it is positive, the health department should call you and give you further instructions about your length of Quarantine and other things. Notify your school or workplace of your results and follow their instructions regarding return to work/school. Prescriptions: Brompheniramine/Pseudoephed/Dm [Bromfed Dm Cough Syrup] 5 ml PO Q6HP PRN #240 ml PRN Reason: Cough Transmission Status: Pending to [facility] methylPREDNISolone [Medrol] 4 mg PO DIRECTED 6 Days #21 packet Transmission Status: Pending to [facility] Azithromycin [Z-Dexter 250mg Tab*] 250 mg PO UD DOSE PK #6 tab Transmission Status: Pending to [facility] Referrals: Zev Hilliard MD [Primary Care Provider] - Forms: Work/School Release Time of Disposition: 20:36 Medical Decision Making - Medical Records Medical records reviewed: No: I reviewed the patient's medical records. - Gokul Inquiry Pt receiving controlled substance: No Vital Signs: 05/01/21 19:37 Temperature 98.4 F Temperature Source Oral Pulse Rate [Left] 108 H Respiratory Rate 20 Blood Pressure [Right Arm] 130/95 H Blood Pressure Mean [Right Arm] 106 02 Sat by Pulse Oximetry 97 - Lab Data Lab results reviewed: Yes: I reviewed the patient's lab results. Lab Results 05/01/21 19:30: SARS-CoV-2 (PCR) Not detected, Influenza A Untype (PCR) Not detected, Influenza Type B (PCR) Not detected 05/01/21 19:34: Strep Scn Rapid Clinic Negative Orders (Tests/Meds): ORDERS Category Date Time Status Upper Respiratory Panel, PCR Stat Lab 05/01/21 20:20 Ordered Strep Screen Confirmation Routine Micro 05/01/21 19:34 Received [facility] HPI - General Stated complaint: cough, sore throat, congestion, body aches Time Seen by Provider: 05/01/21 19:59 Mode of Arrival: Ambulatory Source of Information: Patient Limitations: No Limitations Description of Symptoms (Recalled from Triage Doc. by RN): pt c/o sore throat, congestion, body aches and ears aching. HEENT Symptoms (Recalled from RN notes): Yes Resp Symptoms (Recalled from RN notes): No Skin Symptoms (Recalled from RN notes): No MS Symptoms (Recalled from RN notes): No Functional Status (Recalled from RN notes): wnl - History of Present Illness Provider Complaint: She states that for the past 1 day she has been having bilateral ear pain, sore throat, sinus congestion and a dry nonproductive cough. - Related Data Home Medications Medication Instructions Recorded Confirmed Cetirizine HCl [Zyrtec] 10 mg PO TID 08/22/17 04/05/21 raNITIdine HCl [Zantac] 300 mg PO DAILY 08/22/17 04/05/21 diphenhydrAMINE HCL [Benadryl] 25 mg PO HS 06/25/18 04/05/21 Omalizumab [Xolair] 375 mg SQ MONTHLY 07/14/18 04/05/21 Fluticasone Propionate [Flonase 1 - 2 spr NS DAILYP PRN 01/12/20 04/05/21 50mcg nasal spray 16gm] Vortioxetine Hydrobromide 10 mg PO DAILY 06/28/20 04/05/21 [Trintellix] Previous Rx's Medication Instructions Recorded Azithromycin [Z-Dexter 250mg Tab*] 250 mg PO UD DOSE PK #6 tab 05/01/21 Brompheniramine/Pseudoephed/Dm 5 ml PO Q6HP PRN #240 ml 05/01/21 [Bromfed Dm Cough Syrup] methylPREDNISolone [Medrol] 4 mg PO DIRECTED 6 Days #21 05/01/21 packet Allergies Allergy/AdvReac Type Severity Reaction Status Date / Time apple Allergy Unkno
[2021-05-01 20:02] LABS: UTC Strep Screen (Rapid) Negative (Negative)
[2021-05-01 20:30] LABS: Adenovirus,PCR Not Detected (NotDetected); Bordetella Pertussis Not Detected (NotDetected); Chlamydophila Pneumoniae, PCR Not Detected (NotDetected); Coronavirus 229E Not Detected (NotDetected); Coronavirus NL63 Not Detected (NotDetected); Coronavirus OC43 Not Detected (NotDetected); Coronovirus HKU1,PCR Not Detected (NotDetected); Human Metapneumovirus Not Detected (NotDetected); Influenza A, PCR Not Detected (NotDetected); Influenza AH1, 2009 Not Detected (NotDetected); Influenza AH1, PCR Not Detected (NotDetected); Influenza AH3,PCR Not Detected (NotDetected); Influenza B, PCR Not Detected (NotDetected); Mycoplasma Pneumoniae, PCR Not Detected (NotDetected); Parainfluenza 1, PCR Not Detected (NotDetected); Parainfluenza 2, PCR Not Detected (NotDetected); Parainfluenza 3, PCR Not Detected (NotDetected); Parainfluenza 4, PCR Not Detected (NotDetected); Respiratory Syncytial Virus Not Detected (NotDetected); Rhinovirus/Enterovirus Not Detected (NotDetected)
[2021-05-01 20:55] VITALS: BP 130/95; PULSE 108; RESP 20; TEMP 36.9
== END 2021-05-01 20:55 | disposition home or self-care (01) ==
PROVIDERS: Emergency Provider Nurse Practitioner Family; PCP Internal Medicine Adolescent Medicine
DX: J02.9 Acute pharyngitis, unspecified (principal); Z20.822 Contact with and (suspected) exposure to COVID-19; B34.9 Viral infection, unspecified
CPT/HCPCS: 87486; 87581; 87632; 87798; 87880; 96372; 99202; C9803; G0463; J0696; U0003; U0005

== ENCOUNTER 2021-05-03 15:25 | Outpatient (CLI) | payer OTHER, SELFPAY ==
[2021-05-03 15:54] VITALS: BP 133/87; PULSE 82; RESP 18; TEMP 36.6; O2SAT 97
== END 2021-05-03 16:12 | disposition home or self-care (01) ==
LOC: INF 15:26
PROVIDERS: PCP Internal Medicine Adolescent Medicine; Visit Provider Internal Medicine Adolescent Medicine
DX: T78.3XXA Angioneurotic edema, initial encounter (principal)
CPT/HCPCS: 96372; J2357

== ENCOUNTER → 2021-05-19 15:29 | Outpatient (CLI) | payer OTHER, SELFPAY | PROVIDERS: Visit Provider Nurse Practitioner | DX: U07.1 COVID-19 (principal) | CPT/HCPCS: C9803; U0003; U0005 ==

== ENCOUNTER 2021-05-31 15:23 | Outpatient (CLI) | payer OTHER, SELFPAY | END 2021-05-31 15:39 | disposition home or self-care (01) | LOC: INF 15:23 | PROVIDERS: PCP Internal Medicine Adolescent Medicine; Visit Provider Internal Medicine Adolescent Medicine | DX: T78.3XXA Angioneurotic edema, initial encounter (principal) | CPT/HCPCS: 96372; J2357 ==

== ENCOUNTER 2021-06-28 15:22 | Outpatient (CLI) | payer OTHER, SELFPAY ==
[2021-06-28 15:34] VITALS: BP 141/74; PULSE 79; RESP 18; O2SAT 99
== END 2021-06-28 15:34 | disposition home or self-care (01) ==
LOC: INF 15:22
PROVIDERS: PCP Internal Medicine Adolescent Medicine; Visit Provider Internal Medicine Adolescent Medicine
DX: T78.3XXA Angioneurotic edema, initial encounter (principal)
CPT/HCPCS: 96372; J2357

== ENCOUNTER 2021-07-27 15:52 | Outpatient (CLI) | payer OTHER, SELFPAY ==
[2021-07-27 16:02] VITALS: BP 155/84; PULSE 81; RESP 18; TEMP 36.3; O2SAT 99
== END 2021-07-27 16:27 | disposition home or self-care (01) ==
LOC: INF 15:52
PROVIDERS: PCP Internal Medicine Adolescent Medicine; Visit Provider Internal Medicine Adolescent Medicine
DX: T78.3XXA Angioneurotic edema, initial encounter (principal)
CPT/HCPCS: 96372; J2357

== ENCOUNTER 2021-08-24 16:10 | Outpatient (CLI) | payer OTHER, SELFPAY ==
[2021-08-24 16:23] VITALS: BP 118/77; PULSE 74; RESP 16; TEMP 36.6; O2SAT 100
[2021-08-24 16:27] VITALS: BP 118/77; PULSE 74; TEMP 36.6; O2SAT 100
== END 2021-08-24 16:27 | disposition home or self-care (01) ==
PROVIDERS: PCP Internal Medicine Adolescent Medicine; Visit Provider Internal Medicine Adolescent Medicine
DX: T78.3XXA Angioneurotic edema, initial encounter (principal)
CPT/HCPCS: 96372; J2357

== ENCOUNTER 2021-09-21 15:52 | Outpatient (CLI) | payer OTHER, SELFPAY ==
[2021-09-21 16:33] VITALS: BP 124/84; PULSE 83; RESP 16; O2SAT 99
== END 2021-09-21 16:20 | disposition home or self-care (01) ==
LOC: INF 15:55
PROVIDERS: PCP Internal Medicine Adolescent Medicine; Visit Provider Internal Medicine Adolescent Medicine
DX: T78.3XXA Angioneurotic edema, initial encounter (principal)
CPT/HCPCS: 96372; J2357

== ENCOUNTER 2021-10-19 15:26 | Outpatient (CLI) | payer OTHER, SELFPAY ==
[2021-10-19 16:12] VITALS: BP 143/74; PULSE 71; RESP 18; O2SAT 99
== END 2021-10-19 16:15 | disposition home or self-care (01) ==
LOC: INF 15:26
PROVIDERS: PCP Internal Medicine Adolescent Medicine; Visit Provider Internal Medicine Adolescent Medicine
DX: T78.3XXA Angioneurotic edema, initial encounter (principal)
CPT/HCPCS: 96372; J2357

== ENCOUNTER 2021-11-21 15:47 | Outpatient (CLI) | payer OTHER, SELFPAY ==
[2021-11-21 16:11] VITALS: BP 124/73; PULSE 75; RESP 18; TEMP 36.9; O2SAT 99
== END 2021-11-21 16:24 | disposition home or self-care (01) ==
LOC: INF 15:48
PROVIDERS: PCP Internal Medicine Adolescent Medicine; Visit Provider Internal Medicine Adolescent Medicine
DX: T78.3XXA Angioneurotic edema, initial encounter (principal)
CPT/HCPCS: 96372; J2357

== ENCOUNTER 2022-01-12 13:57 | Outpatient (CLI) | payer OTHER, SELFPAY ==
[2022-01-12 14:15] VITALS: BP 124/78; PULSE 81; RESP 18; O2SAT 99
== END 2022-01-12 14:30 | disposition home or self-care (01) ==
LOC: INF 13:57
PROVIDERS: PCP Internal Medicine Adolescent Medicine; Visit Provider Internal Medicine Adolescent Medicine
DX: T78.3XXA Angioneurotic edema, initial encounter (principal)
CPT/HCPCS: 96372; J2357

== ENCOUNTER 2022-02-08 14:51 | Outpatient (CLI) | payer OTHER, SELFPAY ==
[2022-02-08 15:35] VITALS: BP 151/75; PULSE 87; RESP 18; O2SAT 99
== END 2022-02-08 15:35 | disposition home or self-care (01) ==
LOC: INF 14:51
PROVIDERS: PCP Internal Medicine Adolescent Medicine; Visit Provider Internal Medicine Adolescent Medicine
DX: T78.3XXA Angioneurotic edema, initial encounter (principal)
CPT/HCPCS: 96372; J2357

== ENCOUNTER 2022-03-08 15:25 | Outpatient (CLI) | payer OTHER, SELFPAY ==
[2022-03-08 15:43] VITALS: BP 141/80; PULSE 74; RESP 18; TEMP 36.9; O2SAT 98
== END 2022-03-08 16:02 | disposition home or self-care (01) ==
LOC: INF 15:26
PROVIDERS: PCP Internal Medicine Adolescent Medicine; Visit Provider Internal Medicine Adolescent Medicine
DX: T78.3XXA Angioneurotic edema, initial encounter (principal)
CPT/HCPCS: 96372; J2357

== ENCOUNTER 2022-04-05 15:50 | Outpatient (CLI) | payer OTHER, SELFPAY ==
[2022-04-05 15:56] VITALS: BP 126/54; PULSE 78; RESP 18; TEMP 36.4; O2SAT 97
== END 2022-04-05 16:21 | disposition home or self-care (01) ==
LOC: INF 15:52
PROVIDERS: PCP Internal Medicine Adolescent Medicine; Visit Provider Internal Medicine Adolescent Medicine
DX: T78.3XXA Angioneurotic edema, initial encounter (principal)
CPT/HCPCS: 96372; J2357

== ENCOUNTER 2022-05-03 15:40 | Outpatient (CLI) | payer OTHER, SELFPAY ==
[2022-05-03 15:55] VITALS: BP 170/90; PULSE 80; RESP 18; O2SAT 97
== END 2022-05-03 16:05 | disposition home or self-care (01) ==
LOC: INF 15:40
PROVIDERS: PCP Internal Medicine Adolescent Medicine; Visit Provider Internal Medicine Adolescent Medicine
DX: T78.3XXA Angioneurotic edema, initial encounter (principal)
CPT/HCPCS: 96372; J2357

== ENCOUNTER 2022-05-31 14:39 | Outpatient (CLI) | payer OTHER, SELFPAY ==
[2022-05-31 15:50] VITALS: BP 126/74; PULSE 77; RESP 18; O2SAT 97
== END 2022-05-31 15:50 | disposition home or self-care (01) ==
LOC: INF 14:40
PROVIDERS: PCP Internal Medicine Adolescent Medicine; Visit Provider Internal Medicine Adolescent Medicine
DX: T78.3XXA Angioneurotic edema, initial encounter (principal)
CPT/HCPCS: 96372; J2357

== ENCOUNTER 2022-07-04 15:53 | Outpatient (CLI) | payer OTHER, SELFPAY ==
[2022-07-04 16:03] VITALS: BP 147/77; PULSE 84; RESP 18; O2SAT 98
== END 2022-07-04 16:17 | disposition home or self-care (01) ==
LOC: INF 15:54
PROVIDERS: PCP Internal Medicine Adolescent Medicine; Visit Provider Internal Medicine Adolescent Medicine
DX: T78.3XXA Angioneurotic edema, initial encounter (principal)
CPT/HCPCS: 96372; J2357

== ENCOUNTER 2022-08-02 11:04 | Outpatient (CLI) | payer OTHER, SELFPAY ==
[2022-08-02 11:15] VITALS: BP 134/80; PULSE 104; RESP 16
== END 2022-08-02 11:30 | disposition home or self-care (01) ==
LOC: INF 11:05
PROVIDERS: PCP Internal Medicine Adolescent Medicine; Visit Provider Internal Medicine Adolescent Medicine
DX: T78.3XXA Angioneurotic edema, initial encounter (principal)
CPT/HCPCS: 96372; J2357

== ENCOUNTER 2022-08-30 15:42 | Outpatient (CLI) | payer OTHER, SELFPAY ==
[2022-08-30 16:03] VITALS: BP 137/84; PULSE 84; RESP 18; TEMP 36.7; O2SAT 99
== END 2022-08-30 16:16 | disposition home or self-care (01) ==
LOC: INF 15:42
PROVIDERS: PCP Internal Medicine Adolescent Medicine; Visit Provider Internal Medicine Adolescent Medicine
DX: T78.3XXA Angioneurotic edema, initial encounter (principal)
CPT/HCPCS: 96372; J2357

== ENCOUNTER 2022-09-27 11:01 | Outpatient (CLI) | payer OTHER, SELFPAY ==
[2022-09-27 12:26] VITALS: BP 135/81; PULSE 76; RESP 18; O2SAT 99
== END 2022-09-27 12:57 | disposition home or self-care (01) ==
LOC: INF 11:02
PROVIDERS: PCP Internal Medicine Adolescent Medicine; Visit Provider Internal Medicine Adolescent Medicine
DX: T78.3XXA Angioneurotic edema, initial encounter (principal)
CPT/HCPCS: 96372; J2357

== ENCOUNTER 2022-10-26 14:29 | Outpatient (CLI) | payer OTHER, SELFPAY ==
[2022-10-26 16:00] VITALS: BP 125/95; PULSE 78; RESP 18; TEMP 36.8; O2SAT 99
== END 2022-10-26 16:00 | disposition home or self-care (01) ==
LOC: INF 14:30
PROVIDERS: PCP Internal Medicine Adolescent Medicine; Visit Provider Internal Medicine Adolescent Medicine
DX: T78.3XXA Angioneurotic edema, initial encounter (principal)
CPT/HCPCS: 96372; J2357

== ENCOUNTER 2022-11-22 08:07 | Outpatient (CLI) | payer OTHER, SELFPAY ==
[2022-11-22 08:25] LABS: Basophils # 0.1 K/mm3 (0-0.2); Basophils % 1.1 % (0.1-2.0); Eosinophils # 0.2 K/mm3 (0.0-0.4); Eosinophils % 2.7 % (0.1-12.0); Hematocrit 42.3 % (37.0-47.0); Hemoglobin 14.3 g/dL (12.2-16.2); Lymphocytes % 36.1 % (10-50); Mean Corpuscular HGB Conc 33.9 g/dL (31.8-35.4); Mean Corpuscular Hemoglobin 29.2 pg (27.0-31.2); Mean Corpuscular Volume 86.3 fl (81-99); Mean Platelet Volume 6.9 fl (7.4-10.4); Monocytes # 0.5 K/mm3 (0.1-1.0); Monocytes % 6.2 % (1.7-9.3); Neutrophils # 4.5 K/mm3 (1.8-7.8); Platelet Count 412 K/mm3 (142-424); Red Cell Distribution Width 13.1 % (11.5-17.5); White Blood Count 8.3 K/mm3 (4.8-10.8)
[2022-11-22 09:01] LABS: Hemoglobin A1C 4.9 % (4.0-6.0)
[2022-11-22 09:08] LABS: Alanine Aminotransferase 27 U/L (12-78); Albumin Level 4.2 g/dl (3.5-5.0); Albumin/Globulin Ratio 1.6 (1.1-1.8); Alkaline Phosphatase 77 U/L (38-126); Anion Gap 10.4 mEq/L (5-15); Aspartate Amino Transferase 24 U/L (14-36); Bilirubin,Total 0.4 mg/dl (0.2-1.3); Blood Urea Nitrogen 15 mg/dl (7-17); Calcium 9.3 mg/dl (8.4-10.2); Carbon Dioxide 25 mmol/L (22.0-30.0); Chloride 107 mmol/L (98-107); Chol/HDL Ratio 2.9 (1-3.5); Cholesterol 199 mg/dl (140-200); Estimated Glomerular Filt Rate 98 ml/min (>60); GFR (African American) 119 ML/MIN (>60); Globulin 2.7 g/dL (1.3-3.2); Glucose 85 mg/dl (74-100); HDL Cholesterol 68 mg/dl (40-60); Potassium 4.4 mmoL/L (3.5-5.1); Sodium 138 mmol/L (136-145); Total Protein,Serum 6.9 g/dl (6.3-8.2); Triglycerides 99 mg/dl (30-150); VLDL Cholesterol 20 mg/dL (0-40)
[2022-11-22 09:19] LABS: Direct LDL Cholesterol 93.31 mg/dL (100-129)
[2022-11-22 12:20] VITALS: BP 142/91; PULSE 73; RESP 18; O2SAT 98
== END 2022-11-22 12:20 | disposition home or self-care (01) ==
LOC: INF 08:09
PROVIDERS: PCP Internal Medicine Adolescent Medicine; Visit Provider Nurse Practitioner Family
DX: T78.3XXA Angioneurotic edema, initial encounter (principal); Z79.899 Other long term (current) drug therapy
CPT/HCPCS: 36415; 80053; 80061; 83036; 85025; 96372; J2357

== ENCOUNTER 2022-12-28 15:13 | Outpatient (CLI) | payer OTHER, SELFPAY ==
[2022-12-28 16:10] VITALS: BP 149/87; PULSE 83; RESP 17; TEMP 36.8
== END 2022-12-28 16:26 | disposition home or self-care (01) ==
LOC: INF 15:13
PROVIDERS: PCP Internal Medicine Adolescent Medicine; Visit Provider Internal Medicine Adolescent Medicine
DX: T78.3XXA Angioneurotic edema, initial encounter (principal)
CPT/HCPCS: 96372

== ENCOUNTER 2023-01-25 15:54 | Outpatient (CLI) | payer OTHER, SELFPAY ==
[2023-01-25 16:05] VITALS: BP 128/88; PULSE 80; RESP 16; O2SAT 100
== END 2023-01-25 16:15 | disposition home or self-care (01) ==
LOC: INF 15:55
PROVIDERS: PCP Internal Medicine Adolescent Medicine; Visit Provider Allergy & Immunology
DX: T78.3XXA Angioneurotic edema, initial encounter (principal)
CPT/HCPCS: 96372; J2357

== ENCOUNTER 2023-02-22 15:56 | Outpatient (CLI) | payer OTHER, SELFPAY ==
[2023-02-22 16:31] VITALS: BP 133/80; PULSE 92; RESP 18; O2SAT 98
== END 2023-02-22 16:31 | disposition home or self-care (01) ==
LOC: INF 16:00
PROVIDERS: PCP Internal Medicine Adolescent Medicine; Visit Provider Internal Medicine Adolescent Medicine
DX: T78.3XXA Angioneurotic edema, initial encounter (principal)
CPT/HCPCS: 96372; J2357

== ENCOUNTER 2023-03-21 12:21 | Outpatient (CLI) | payer OTHER, SELFPAY ==
[2023-03-21 12:44] VITALS: BP 116/71; PULSE 72; RESP 16; TEMP 36.9; O2SAT 98
== END 2023-03-21 13:00 | disposition home or self-care (01) ==
LOC: INF 12:22
PROVIDERS: PCP Internal Medicine Adolescent Medicine; Visit Provider Internal Medicine Adolescent Medicine
DX: T78.3XXA Angioneurotic edema, initial encounter (principal)
CPT/HCPCS: 96372; J2357

== ENCOUNTER 2023-04-16 15:07 | Outpatient (CLI) | payer OTHER, SELFPAY ==
[2023-04-16 15:55] VITALS: BP 140/88; PULSE 74; RESP 18; O2SAT 100
== END 2023-04-16 16:06 | disposition home or self-care (01) ==
LOC: INF 15:08
PROVIDERS: PCP Internal Medicine Adolescent Medicine; Visit Provider Internal Medicine Adolescent Medicine
DX: T78.3XXA Angioneurotic edema, initial encounter (principal)
CPT/HCPCS: 96372; J2357

== ENCOUNTER 2023-05-14 15:51 | Outpatient (CLI) | payer OTHER, SELFPAY ==
[2023-05-14] MEDS: OMALIZUMAB 150MG VIAL 375 MG SQ (16:12)
[2023-05-14 16:15] VITALS: BP 139/85; PULSE 87; RESP 18; TEMP 36.9; O2SAT 99
== END 2023-05-14 16:20 | disposition home or self-care (01) ==
LOC: INF 15:52
PROVIDERS: PCP Internal Medicine Adolescent Medicine; Visit Provider Internal Medicine Adolescent Medicine
DX: T78.3XXA Angioneurotic edema, initial encounter (principal)
CPT/HCPCS: 96372; J2357

== ENCOUNTER 2023-06-11 13:51 | Outpatient (CLI) | payer OTHER, SELFPAY ==
[2023-06-11 16:14] VITALS: BP 147/69; PULSE 87; RESP 18; TEMP 36.6; O2SAT 98
[2023-06-11] MEDS: OMALIZUMAB 150MG VIAL 375 MG SQ (16:14)
== END 2023-06-11 16:24 | disposition home or self-care (01) ==
LOC: INF 13:51
PROVIDERS: PCP Internal Medicine Adolescent Medicine; Visit Provider Internal Medicine Adolescent Medicine
DX: T78.3XXA Angioneurotic edema, initial encounter (principal)
CPT/HCPCS: 96372; J2357

== ENCOUNTER 2023-06-18 08:55 | Outpatient (POV) | payer OTHER, SELFPAY | END 2023-06-18 23:59 | disposition home or self-care (01) | LOC: SC 08:55 | PROVIDERS: Visit Provider Specialist/Technologist | DX: Z00.00 Encounter for general adult medical examination without abnormal findings (principal) ==

== ENCOUNTER 2023-07-09 15:32 | Outpatient (CLI) | payer OTHER, SELFPAY ==
[2023-07-09 15:59] VITALS: BP 127/75; PULSE 74; RESP 18; O2SAT 98
[2023-07-09] MEDS: OMALIZUMAB 150MG VIAL 375 MG SQ (15:59)
== END 2023-07-09 16:01 | disposition home or self-care (01) ==
LOC: INF 15:33
PROVIDERS: PCP Internal Medicine Adolescent Medicine; Visit Provider Internal Medicine Adolescent Medicine
DX: L50.8 Other urticaria (principal)
CPT/HCPCS: 96372; J2357

== ENCOUNTER 2023-08-06 15:40 | Outpatient (CLI) | payer OTHER, SELFPAY ==
[2023-08-06 15:55] VITALS: BP 131/76; PULSE 86; O2SAT 97
[2023-08-06] MEDS: OMALIZUMAB 150MG VIAL 375 MG SQ (15:55)
== END 2023-08-06 16:02 | disposition home or self-care (01) ==
LOC: INF 15:40
PROVIDERS: PCP Internal Medicine Adolescent Medicine; Visit Provider Internal Medicine Adolescent Medicine
DX: L50.8 Other urticaria (principal)
CPT/HCPCS: 96372; J2357

== ENCOUNTER 2023-09-06 14:48 | Outpatient (CLI) | payer OTHER, SELFPAY ==
--- OUTSIDE RECORDS SUMMARY | 2023-09-06 14:50 | XMS_ITS | Continuity of Care Document ---
Author Name Unknown Organization [facility] 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 Name Role Phone Wilmer Martinez MD Unavailable Unavailable Allergies, Adverse Reactions, Alerts Substance Reaction Status Criticality ibuprofen Active No Information banana Active No Information apple Active No Information soy Active No Information potato Active No Information oats Active No Information barley Active No Information Medications Medication Instructions Dosage Effective Dates (start - stop) Status Comments Heartburn Relief (cimetidine) 200 mg tablet take 1 tablet by oral route every day 30 minutes before meals 200 MG - Active Viibryd 20 mg tablet take 1 tablet by or al route every day with food 20 MG - Active Benadryl Allergy 25 mg tablet oral tablet by oral route once as needed tablet - Active Xolair 150 mg/mL subcutaneous syringe inject (150MG) by subcutaneous route every 4 weeks 150 MG - Active Zyrtec 10 mg tablet take 1 tablet by ora l route every day 10 MG - Active Procedures Procedure Date Office Visit Level IV New Office Consult Level V Advance Directives Directive Yes / No Effective Date File Name No Information Encounters Encounter Description Practice Location Reason(s) For Visit Diagnoses Date Provider Providers Copied on Encounter Office Visit Level IV [facility] [address] [facility] [address], [place], [place], [id number], [place] tel:[phone] [facility] Joint Pain (chief complaint) THROMBOCYTOSISLeu kocytosisUrticari aJoint PainBody mass index (BMI) 40.0-44.9, adult Mar- 0 Juan Wilmer. [address] [facility], [place] [address], [place], [place], [id number] . tel:[phone] Referring Provider: Cristal Kenney, [address], [place], [address]. tel:[phone] New Office Consult Level V [facility] [address], [id number], tel:[phone] [facility] Body mass index (BMI) 40.0-44.9, adultJoint PainUrticariaTHRO MBOCYTOSISLeukocy tosis Feb- 0 Juan Wilmer. [address], [id number] . tel:[phone] Referring Provider: Cristal Kenney, [address], [place], [address]. tel:[phone] [facility] [address], [id number], tel:[phone] [facility] No Information [facility] [address], [id number] . tel:[phone] Family History Family Member Type Diagnosis Age At Onset Mother Problem a fib Father Problem hypertension Mother Problem Diabetes mellitus Mother Problem hypertension Mother Problem Arthritis Payers Payer name Insurance type Covered libertarian ID Authorbabatundea tibrian(s) Umr [id number] CI [id number] Social History Type Description Quantity Date Captured Comments Alcohol Use Details Caffeine Use Details Unknown Tobacco Use Status Current non-smoker Smoking Status Never smoker Sex Female Vital Signs Date / Time: Height Weight BMI Pulse Rate Blood Pressure Temperature Respiratory Rate Body Surface Area Head Circumference Head Circ. Percentile Wt./Red. Percentile BMI percentile Pulse Ox Inhaled Ox 2:16 PM 69.00 in 131.633 kg (290.20 lbs) 42.8 5 kg/m eter (2) 100 /min 140/80 mm[Hg] 97.70 F Chief Complaint And Reason For Visit From encounter dated 04/14/2020 14:15'. Joint Pain (chief complaint). Description: The severity of the problem is mild. Pain scale: 2/10. The symptoms are intermittent. The problem is improving. The following symptoms are not reported: pain, stiffness, swelling and functional limitation. The patient's assessment of treatment is: helping greatly. The patient is not experiencing side effects. Pertinent negatives include fever, fat igue, AM stiffness, inactivity gelling, eye symptoms, change in vision, sicca complaints, skin lesion(s), chest pain, changing cough, edema, joint swelling and abdominal pain. Additional information:No joint pain, swelling or angioedema. Feels very well. Reason For Referral Reason For Referral No Information Plan Of Treatment Date Type Action Status Goal Lifestyle educat ion regarding diet completed Goal Lifestyle educat ion regarding diet completed Future Order: Radiology Order Fo ot X-ray; Limited (2 views) ([id number]), Ordered on: Ordered Future Order: Radiology Order Lawson nd X-ray; Limited (2 views) ([id number]), Ordered on: Ordered Future Order: Lab Order CBC With Differential/Platelet ([id number]), Ordered on: Ordered Future Order: Lab Order Comp. Me tabolic Panel (14) ([id number]), Ordered on: Ordered Future Order: Lab Order C-Reacti ve Protein, Quant ([id number]), Ordered on: Ordered Future Order: Lab Order UA, Comp lete w/ Micro Exam w/Rflx Culture, Comp ([id number]), Ordered on: Ordered Future Order: Lab Order Sediment ation Rate-Westergren ([id number]), Ordered on: Ordered Future Order: Lab Order Uric Aci d, Serum ([id number]), Ordered on: Ordered Future Order: Lab Order Creatine Kinase,Total,Serum ([id number]), Ordered on: Ordered Future Order: Lab Order Hepatiti s Panel (4) ([id number]), Ordered on: Ordered Future Order: Lab Order Lyme Ab/ Western Blot Reflex ([id number]), Ordered on: Ordered Future Order: Lab Order RPR, Rfx Qn RPR/Confirm TP-PA ([id number]), Ordered on: Ordered Future Order: Lab Order Antinucl ear Antibodies, SOURAV, IFA ([id number]), Ordered on: Ordered Future Order: Lab Order Compleme nt C4, Serum ([id number]), Ordered on: Ordered Future Order: Lab Order Compleme nt C3, Serum ([id number]), Ordered on: Ordered Future Order: Lab Order Cyclic Citrullinated Peptide-4P (Theratest) (CCP4P), Ordered on: Ordered Future Order: Lab Order Rheuma toid Factor/3 IgM, IgG, IgA (Theratest) (RF3), Ordered on: Ordered Future Order: Lab Order Compleme nt C1q, Quantitative ([id number]), Ordered on: Ordered Future Order: Lab Order Compleme nt, Total (CH50) ([id number]), Ordered on: Ordered Future Order: Lab Order AVISE CTD (AVISE), Ordered on: Ordered Future Order: Lab Order CCP Anti bodies IgG/IgA ([id number]), Ordered on: Ordered Future Order: Lab Order Rheumato id Factor, IgG/M/A ([id number]), Ordered on: Ordered Future Order: Lab Order Cryoglob Kayleigh willams, Serum, Rflx ([id number]), Ordered on: Ordered Future Order: Lab Order Protein Electro.,S ([id number]), Ordered on: Ordered History Of Present Illness Encounter Date Complaint History Of Prese nt Illness Joint Pain The severity of the problem is mild. Pain scale: 2/10. The symptoms are intermittent. The problem is improving. The following symptoms are not reported: pain, stiffness, swelling and functional limitation. The patient's assessment of treatment is: helping greatly. The patient is not experiencing side effects. Pertinent negatives include fever, fatigue, AM stiffness, inactivity gelling, eye symptoms, change in vision, sicca complaints, skin lesion(s), chest pain, changing cough, edema, joint swelling and abdominal pain. Additional information: No joint pain, swelling or angioedema. Feels very well. Functional Status Date Functional Assessmen t Pain Score 2/10 Instructions Date Instruction Additional Infor mation One lab test demonst rated a platelet count of [id number]. Her most recent platelet count was normal. Related to THROMBOCYTOSIS One [place] [address]. Her most recent white blood cell count was normal. Related to Leukocytosis She has certainly im proved with the Xolair but this has not caused complete resolution. I will get the records from [place]. Related to Urticaria Given the laboratory studies, exam, records from [place], and her history, I do not think she has any inflammatory arthritis. 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 Labs were completely normal. I told her I see no evidence of rheumatologic autoimmune disease. I would suggest she continue follow-up for the angioedema and urticaria. I will plan to see her on a p.r.n. only basis. Related to Joint Pain Lifestyle education regarding di et Related to Body mass index [BMI]40.0-44.9, adult [place] [address]. It is not clear if she was on steroids at that time. Related to Leukocytosis Given the laboratory studies that we have seen and her history, I think it is unlikely she has any inflammatory arthritis. 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 Her joint exam today is completely normal. I will draw several labs today and x-ray her hands and feet. 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 I will see her in 4 weeks. Related to Joint Pain She has certainly im proved with the Xolair but this has not caused complete resolution. I will get the records from [place]. Related to Urticaria [facility] [place] count [place] 810540. Related to THROMBOCYTOSIS Lifestyle education regarding di et Related to Body mass index [BMI]40.0-44.9, adult Assessments Type Assessment Date assessment THROMBOCYTOSIS assessment Leukocytosis assessment Urticaria impression Biopsy in the past c onsistent with urticaria without vasculitis. SOURAV negative. Treated with Xolair. assessment Joint Pain impression Primarily involving the hands and feet. Episodic and associated with flares of urticaria. Associated with diffuse edema and erythema. Lasts from 2-24 hours. Rheumatoid factor, antinuclear antibody, and CCP antibody all negative. assessment Body mass index [BMI]40.0-44.9, adult Patient Care Teams Name Effective Dates (start - stop) Status Members No Information
[2023-09-06] MEDS: OMALIZUMAB 150MG VIAL 375 MG SQ (15:53)
[2023-09-06 15:56] VITALS: BP 130/87; PULSE 93; RESP 18; O2SAT 96
== END 2023-09-06 15:56 | disposition home or self-care (01) ==
LOC: INF 14:49
PROVIDERS: PCP Internal Medicine Adolescent Medicine; Visit Provider Internal Medicine Adolescent Medicine
DX: L50.8 Other urticaria (principal)
CPT/HCPCS: 96372; J2357

== ENCOUNTER 2023-10-04 15:43 | Outpatient (CLI) | payer OTHER, SELFPAY ==
[2023-10-04 15:57] VITALS: BP 128/79; PULSE 97; RESP 20; TEMP 36.6; O2SAT 97
== END 2023-10-04 16:16 | disposition home or self-care (01) ==
LOC: INF 15:44
PROVIDERS: PCP Internal Medicine Adolescent Medicine; Visit Provider Nurse Practitioner Family
DX: R06.00 Dyspnea, unspecified (principal)
CPT/HCPCS: 96372; J2357

== ENCOUNTER 2023-11-05 14:54 | Outpatient (CLI) | payer OTHER, SELFPAY ==
[2023-11-05 15:56] VITALS: BP 125/80; PULSE 72; RESP 20; TEMP 36.6; O2SAT 97
== END 2023-11-05 16:05 | disposition home or self-care (01) ==
LOC: INF 14:54
PROVIDERS: PCP Internal Medicine Adolescent Medicine; Visit Provider Internal Medicine Adolescent Medicine
DX: R06.09 Other forms of dyspnea (principal)
CPT/HCPCS: 96372; J2357

== ENCOUNTER 2023-11-14 07:19 | Outpatient (CLI) | payer OTHER, SELFPAY ==
[2023-11-14 07:56] LABS: Basophils # 0.1 K/mm3 (0-0.2); Basophils % 1.1 % (0.1-2.0); Eosinophils # 0.2 K/mm3 (0.0-0.4); Eosinophils % 2.7 % (0.1-12.0); Hematocrit 42.7 % (37.0-47.0); Hemoglobin 14.3 g/dL (12.2-16.2); Lymphocytes # 2.5 K/mm3 (0.7-4.5); Lymphocytes % 36.7 % (10-50); Mean Corpuscular HGB Conc 33.4 g/dL (31.8-35.4); Mean Corpuscular Hemoglobin 30.1 pg (27.0-31.2); Mean Corpuscular Volume 90.3 fl (81-99); Mean Platelet Volume 7.2 fl (7.4-10.4); Monocytes # 0.4 K/mm3 (0.1-1.0); Monocytes % 6.1 % (1.7-9.3); Neutrophils # 3.7 K/mm3 (1.8-7.8); Neutrophils % 53.3 % (37.0-80.0); Platelet Count 459 K/mm3 (142-424); Red Blood Count 4.73 M/mm3 (4.20-5.40); White Blood Count 6.9 K/mm3 (4.8-10.8)
[2023-11-14 09:10] LABS: Alanine Aminotransferase 45 U/L (12-78); Albumin Level 3.9 g/dl (3.5-5.0); Albumin/Globulin Ratio 1.5 (1.1-1.8); Alkaline Phosphatase 81 U/L (38-126); Anion Gap 11.3 mEq/L (5-15); Aspartate Amino Transferase 36 U/L (14-36); Bilirubin,Total 0.6 mg/dl (0.2-1.3); Blood Urea Nitrogen 11 mg/dl (7-17); Calcium 9.5 mg/dl (8.4-10.2); Carbon Dioxide 24 mmol/L (22.0-30.0); Chloride 106 mmol/L (98-107); Chol/HDL Ratio 3.7 (1-3.5); Cholesterol 201 mg/dl (140-200); Estimated Glomerular Filt Rate 98 ml/min (>60); GFR (African American) 118 ML/MIN (>60); Globulin 2.6 g/dL (1.3-3.2); Glucose 89 mg/dl (74-100); HDL Cholesterol 55 mg/dl (40-60); Potassium 4.3 mmoL/L (3.5-5.1); Sodium 137 mmol/L (136-145); Total Protein,Serum 6.5 g/dl (6.3-8.2); Triglycerides 154 mg/dl (30-150); VLDL Cholesterol 31 mg/dL (0-40)
[2023-11-14 09:20] LABS: Direct LDL Cholesterol 102.63 mg/dL (100-129)
[2023-11-14 10:13] LABS: Thyroid Stimulating Hormone 1.77 uIU/mL (0.465-4.68)
[2023-11-14 11:24] LABS: Hemoglobin A1C 4.7 % (4.0-6.0)
== END 2023-11-14 23:59 | disposition home or self-care (01) ==
LOC: LAB 07:20
PROVIDERS: PCP Nurse Practitioner Family; Visit Provider Nurse Practitioner Family
DX: Z00.00 Encounter for general adult medical examination without abnormal findings (principal); E66.01 Morbid (severe) obesity due to excess calories; D72.829 Elevated white blood cell count, unspecified
CPT/HCPCS: 36415; 80050; 80053; 80061; 83036; 84443; 85025

== ENCOUNTER 2023-12-03 15:34 | Outpatient (CLI) | payer OTHER, SELFPAY ==
[2023-12-03] MEDS: OMALIZUMAB 150MG VIAL 375 MG SQ (16:13)
[2023-12-03 16:15] VITALS: BP 119/68; PULSE 68; RESP 18; O2SAT 100
== END 2023-12-03 16:19 | disposition home or self-care (01) ==
LOC: INF 15:34
PROVIDERS: PCP Nurse Practitioner Family; Visit Provider Nurse Practitioner Family
DX: L50.9 Urticaria, unspecified (principal)
CPT/HCPCS: 96372; J2357

== ENCOUNTER 2024-01-01 12:32 | Outpatient (CLI) | payer OTHER, SELFPAY ==
[2024-01-01 13:05] VITALS: BP 126/74; PULSE 83; RESP 18; O2SAT 98
== END 2024-01-01 13:10 | disposition home or self-care (01) ==
LOC: INF 12:33
PROVIDERS: PCP Nurse Practitioner Family; Visit Provider Nurse Practitioner Family
DX: Z79.899 Other long term (current) drug therapy
CPT/HCPCS: 96372; J2357

== ENCOUNTER 2024-01-29 15:15 | Outpatient (CLI) | payer OTHER, SELFPAY ==
[2024-01-29 15:40] VITALS: BP 127/78; PULSE 78; RESP 18; TEMP 36.7; O2SAT 98
[2024-01-29] MEDS: OMALIZUMAB 150MG VIAL 375 MG SQ (15:40)
== END 2024-01-29 15:45 | disposition home or self-care (01) ==
LOC: INF 15:16
PROVIDERS: PCP Internal Medicine Adolescent Medicine; Visit Provider Internal Medicine Adolescent Medicine
DX: L50.8 Other urticaria (principal)
CPT/HCPCS: 96372; J2357

== ENCOUNTER 2024-03-11 15:41 | Outpatient (CLI) | payer OTHER, SELFPAY ==
[2024-03-11] MEDS: OMALIZUMAB 150MG VIAL 375 MG SUBCUT (16:02)
[2024-03-11 16:03] VITALS: BP 136/80; PULSE 78; RESP 17; TEMP 37.1; O2SAT 97
[2024-03-11 16:05] VITALS: BP 136/80; PULSE 78; RESP 17; TEMP 37.1; O2SAT 98
== END 2024-03-11 16:05 | disposition home or self-care (01) ==
LOC: INF 15:41
PROVIDERS: PCP Internal Medicine Adolescent Medicine; Visit Provider Internal Medicine Adolescent Medicine
DX: L50.8 Other urticaria (principal)
CPT/HCPCS: 96372; J2357

== ENCOUNTER 2024-04-08 15:32 | Outpatient (CLI) | payer OTHER, SELFPAY ==
[2024-04-08 15:58] VITALS: BP 130/71; PULSE 72; RESP 18; O2SAT 98
[2024-04-08] MEDS: OMALIZUMAB 150MG VIAL 375 MG SUBCUT (15:58)
== END 2024-04-08 16:02 | disposition home or self-care (01) ==
LOC: INF 15:33
PROVIDERS: PCP Internal Medicine Adolescent Medicine; Visit Provider Internal Medicine Adolescent Medicine
DX: L50.9 Urticaria, unspecified (principal)
CPT/HCPCS: 96372; J2357

== ENCOUNTER 2024-05-07 15:01 | Outpatient (CLI) | payer OTHER, SELFPAY ==
[2024-05-07 15:40] VITALS: BP 124/73; PULSE 81; RESP 18; TEMP 36.9; O2SAT 97
[2024-05-07] MEDS: OMALIZUMAB 150MG VIAL 375 MG SUBCUT (15:40)
== END 2024-05-07 15:58 | disposition home or self-care (01) ==
LOC: INF 15:01
PROVIDERS: PCP Internal Medicine Adolescent Medicine; Visit Provider Nurse Practitioner Family
DX: L50.8 Other urticaria (principal)
CPT/HCPCS: 96372; J2357

== ENCOUNTER 2024-06-04 15:49 | Outpatient (CLI) | payer OTHER, SELFPAY ==
[2024-06-04] MEDS: OMALIZUMAB 150MG VIAL 375 MG SUBCUT (16:08)
[2024-06-04 16:09] VITALS: BP 120/70; PULSE 84; RESP 20; TEMP 36.3; O2SAT 99
== END 2024-06-04 16:31 | disposition home or self-care (01) ==
LOC: INF 15:50
PROVIDERS: PCP Internal Medicine Adolescent Medicine; Visit Provider Internal Medicine Adolescent Medicine
DX: L50.8 Other urticaria (principal)
CPT/HCPCS: 96372; J2357

== ENCOUNTER 2024-07-02 15:33 | Outpatient (CLI) | payer OTHER, SELFPAY ==
[2024-07-02 16:00] VITALS: BP 140/53; PULSE 87; RESP 18; TEMP 36.4; O2SAT 99
[2024-07-02] MEDS: OMALIZUMAB 150MG VIAL 375 MG SUBCUT (16:01)
== END 2024-07-02 16:13 | disposition home or self-care (01) ==
LOC: INF 15:34
PROVIDERS: PCP Internal Medicine Adolescent Medicine; Visit Provider Internal Medicine
DX: L50.1 Idiopathic urticaria (principal)
CPT/HCPCS: 96372; J2357

== ENCOUNTER 2024-07-30 15:39 | Outpatient (CLI) | payer OTHER, SELFPAY ==
[2024-07-30] MEDS: OMALIZUMAB 150MG VIAL 375 MG SUBCUT (15:58)
[2024-07-30 16:00] VITALS: BP 119/71; PULSE 80; RESP 17; O2SAT 98
== END 2024-07-30 16:15 | disposition home or self-care (01) ==
LOC: INF 15:39
PROVIDERS: PCP Internal Medicine Adolescent Medicine; Visit Provider Internal Medicine Adolescent Medicine
DX: L50.1 Idiopathic urticaria (principal)
CPT/HCPCS: 96372; J2357

== ENCOUNTER 2024-08-27 15:32 | Outpatient (CLI) | payer OTHER, SELFPAY ==
[2024-08-27 16:08] VITALS: BP 133/68; PULSE 79; RESP 20; TEMP 36.7; O2SAT 99
[2024-08-27] MEDS: OMALIZUMAB 150MG VIAL 375 MG SUBCUT (16:08)
== END 2024-08-27 16:19 | disposition home or self-care (01) ==
LOC: INF 15:33
PROVIDERS: PCP Internal Medicine Adolescent Medicine; Visit Provider Internal Medicine Adolescent Medicine
DX: L50.1 Idiopathic urticaria (principal)
CPT/HCPCS: 96372; J2357

== ENCOUNTER 2024-09-25 15:41 | Outpatient (CLI) | payer OTHER, SELFPAY ==
[2024-09-25] MEDS: OMALIZUMAB 150MG VIAL 375 MG SUBCUT (16:07)
[2024-09-25 16:08] VITALS: BP 119/66; PULSE 85; RESP 20; TEMP 36.7; O2SAT 98
== END 2024-09-25 16:16 | disposition home or self-care (01) ==
LOC: INF 15:42
PROVIDERS: PCP Internal Medicine Adolescent Medicine; Visit Provider Internal Medicine Adolescent Medicine
DX: L50.1 Idiopathic urticaria (principal)
CPT/HCPCS: 96372; J2357

== ENCOUNTER 2024-10-23 15:15 | Outpatient (CLI) | payer OTHER, SELFPAY ==
[2024-10-23 15:39] VITALS: BP 145/77; PULSE 82; RESP 20; TEMP 36.8; O2SAT 100
[2024-10-23] MEDS: OMALIZUMAB 150MG VIAL 375 MG SUBCUT (15:39)
== END 2024-10-23 15:51 | disposition home or self-care (01) ==
LOC: INF 15:16
PROVIDERS: PCP Internal Medicine Adolescent Medicine; Visit Provider Nurse Practitioner Family
DX: E83.119 Hemochromatosis, unspecified (principal); R79.89 Other specified abnormal findings of blood chemistry
CPT/HCPCS: 96372; J2357

== ENCOUNTER 2024-11-20 15:14 | Outpatient (CLI) | payer OTHER, SELFPAY ==
[2024-11-20 15:40] VITALS: BP 140/67; PULSE 68; RESP 18; TEMP 36.9; O2SAT 98
[2024-11-20] MEDS: OMALIZUMAB 150MG VIAL 375 MG SUBCUT (15:40)
== END 2024-11-20 16:00 | disposition home or self-care (01) ==
LOC: INF 15:15
PROVIDERS: PCP Internal Medicine Adolescent Medicine; Visit Provider Internal Medicine Adolescent Medicine
DX: Z01.89 Encounter for other specified special examinations (principal)
CPT/HCPCS: 96372; J2357

== ENCOUNTER 2024-12-22 14:44 | Outpatient (CLI) | payer OTHER, SELFPAY ==
[2024-12-22] MEDS: OMALIZUMAB 150MG VIAL 375 MG SUBCUT (15:13)
[2024-12-22 15:17] VITALS: BP 145/75; PULSE 90; RESP 18; O2SAT 97
== END 2024-12-22 15:17 | disposition home or self-care (01) ==
LOC: INF 14:45
PROVIDERS: PCP Internal Medicine Adolescent Medicine; Visit Provider Internal Medicine Adolescent Medicine
DX: Z01.89 Encounter for other specified special examinations (principal)
CPT/HCPCS: 96372; J2357

== ENCOUNTER 2025-01-20 15:08 | Outpatient (CLI) | payer OTHER, SELFPAY ==
[2025-01-20 15:29] VITALS: BP 128/84; PULSE 67; RESP 18; O2SAT 99
[2025-01-20 15:35] VITALS: BP 128/84; PULSE 69; RESP 20; TEMP 36.6; O2SAT 100
[2025-01-20] MEDS: OMALIZUMAB 150MG VIAL 375 MG SUBCUT (15:35)
== END 2025-01-20 23:59 | disposition home or self-care (01) ==
LOC: INF 15:09
PROVIDERS: PCP Internal Medicine Adolescent Medicine; Visit Provider Internal Medicine Adolescent Medicine
DX: L50.8 Other urticaria (principal)
CPT/HCPCS: 96372; J2357

== ENCOUNTER 2025-02-17 11:13 | Outpatient (CLI) | payer OTHER, SELFPAY ==
[2025-02-17] MEDS: OMALIZUMAB 150MG VIAL 375 MG SUBCUT (11:53)
[2025-02-17 11:55] VITALS: BP 132/91; PULSE 76; RESP 18; O2SAT 100
== END 2025-02-17 23:59 | disposition home or self-care (01) ==
PROVIDERS: PCP Internal Medicine Adolescent Medicine; Visit Provider Internal Medicine Adolescent Medicine
DX: L50.8 Other urticaria (principal)
CPT/HCPCS: 96372; J2357

== ENCOUNTER 2025-03-17 15:01 | Outpatient (CLI) | payer OTHER, SELFPAY ==
[2025-03-17 15:30] VITALS: BP 127/76; PULSE 78; RESP 18; TEMP 36.6; O2SAT 98
[2025-03-17] MEDS: OMALIZUMAB 150MG VIAL 375 MG SUBCUT (15:30)
== END 2025-03-17 23:59 | disposition home or self-care (01) ==
LOC: INF 15:02
PROVIDERS: PCP Internal Medicine Adolescent Medicine; Visit Provider Internal Medicine Adolescent Medicine
DX: L50.9 Urticaria, unspecified (principal)
CPT/HCPCS: 96372; J2357

== ENCOUNTER 2025-04-14 15:24 | Outpatient (CLI) | payer OTHER, SELFPAY ==
[2025-04-14 16:00] VITALS: BP 126/64; PULSE 74; RESP 18; TEMP 36.5; O2SAT 99
[2025-04-14] MEDS: OMALIZUMAB 150MG VIAL 375 MG SUBCUT (16:00)
== END 2025-04-14 23:59 | disposition home or self-care (01) ==
LOC: INF 15:24
PROVIDERS: PCP Internal Medicine Adolescent Medicine; Visit Provider Internal Medicine Adolescent Medicine
DX: D50.9 Iron deficiency anemia, unspecified (principal)
CPT/HCPCS: 96372; J2357